=== PATIENT | female | born 1950 | race African-American/Black ===

== ENCOUNTER 2016-06-24 08:48 | Inpatient (IN) | payer OTHER, MEDICAID ==
[~2016-06-24] VITALS: Ht 157.5 cm; Wt 43.3 kg
[2016-06-24 09:41] LABS: Basophils # (auto) 0 uL; Basophils % (auto) 0.3 % (0.0-2.0); Eosinophils # (auto) 0.1 uL; Eosinophils % (auto) 0.6 % (0.0-7.0); Hematocrit 39.8 % (36.0-46.0); Hemoglobin 13.2 g/dL (12.2-16.2); Lymphocytes # (auto) 2.1 uL; Lymphocytes % (auto) 20.2 % (10.0-50.0); Mean Corpuscular Hemoglobin 32.5 pg (28.0-32.0); Mean Corpuscular Hgb Conc. 33.1 g/dL (32.0-36.0); Mean Corpuscular Volume 98.3 fL (80.0-100.0); Mean Platelet Volume 9.5 fL (7.4-10.4); Monocytes # (auto) 0.3 uL; Neutrophils # (auto) 7.9 uL; Neutrophils % (auto) 75.9 % (37.0-80.0); Platelet Count (auto) 238 10^3/uL (140-450); Red Cell Distribution Width 13.9 % (11.6-16.0); White Blood Cell 10.4 10^3/uL (4.4-10.8)
[2016-06-24 09:55] LABS: Albumin 3.8 g/dL (3.4-5.0); BUN/Creatinine Ratio 26.2; Calcium 8.9 mg/dL (8.5-10.1); Magnesium 2.2 mg/dL (1.6-2.6)
[2016-06-24 10:00] LABS: Bilirubin, Total 0.3 mg/dL (0.2-1.0); Total Protein 7.9 g/dL (6.4-8.2)
[2016-06-24] MEDS ORDERED: SODIUM CHLORIDE 0.9% 1,000 ML IV ONE ×2 (10:49→11:00)
[2016-06-24] MEDS ORDERED: FUROSEMIDE 40 MG/4 ML VIAL IV ONE (11:00)
[2016-06-24] MEDS ORDERED: ASPirin 81 mg TAB PO ONE (11:00)
[2016-06-24 11:15] LABS: INR 0.9 (0.9-1.15); Partial Thromboplastin Time 21.3 sec (22.64-33.71); Prothrombin Time 9.7 sec (9.37-12.3)
[2016-06-24 12:04] LABS: B-Type Natriuretic Peptide 938.27 pg/mL (0-100); Temperature: 22.7 C (20.0-25.0)
[2016-06-24] MEDS ORDERED: LABETALOL HCL 5 MG/ML 4ML SYRINGE IV ONE (12:30)
[2016-06-24] MEDS ORDERED: MORPHINE SULF INJ 2 MG/ML SYRINGE 1ML IV PRN (13:15)
[2016-06-24] MEDS ORDERED: NITROGLYCERIN 0.4 MG SL TAB SL PRN (13:15)
[2016-06-24] MEDS ORDERED: LACTULOSE 20Gm/30ML SOLN PO PRN (13:15)
[2016-06-24] MEDS ORDERED: DEXTROSE (50%) 50ML SYRG IV PRN (13:15)
[2016-06-24] MEDS ORDERED: PROCHLORPERAZINE EDISYLATE 5 MG/ML 2ML VIAL IV PRN (13:15)
[2016-06-24] MEDS ORDERED: LORazepam 0.5 MG TAB PO PRN (13:15)
[2016-06-24] MEDS ORDERED: ACETAMINOPHEN 500 MG TAB PO PRN (13:15)
[2016-06-24] MEDS ORDERED: SODIUM CHLORIDE 0.9% 1,000 ML IV SCH (13:33)
[2016-06-24] MEDS ORDERED: METF-312 PO (13:49)
[2016-06-24 14:06] LABS: Amylase 48 U/L (25-115)
[2016-06-24] MEDS: SODIUM CHLOR 0.9% PF (SALINE LOCK) 10ML VIAL IV SCH ×2 (14:53→23:14)
[2016-06-24] MEDS ORDERED: ENALAPRIL MALEATE 10 MG TAB PO ONE (15:00)
[2016-06-24] MEDS ORDERED: IBUP600T27 PO (15:49)
[2016-06-24] MEDS: NITROGLYCERIN 0.2MG/HR TOPICAL PATCH TD SCH (16:48)
[2016-06-24] MEDS: ENOXAPARIN SOD 40 MG/0.4 ML SYRINGE SC SCH (16:48)
[2016-06-24] MEDS: MORPHINE SULF INJ 2 MG/ML SYRINGE 1ML IV PRN (16:48)
[2016-06-24 16:58] VITALS: BP 168/96
[2016-06-24] MEDS: ACCU-CHEK COMFORT CURVE STRIP VI SCH ×2 (17:00→22:25)
[2016-06-24] MEDS: InsuLIN REG 1unit/0.01ml Soln (100units/ml) SC SCH ×2 (17:00→22:25)
[2016-06-24 17:09] LABS: Urine Bilirubin Negative (Negative); Urine Blood Negative /uL (Negative); Urine Color Colorless (Yellow); Urine Ketone Negative (Negative); Urine Nitrite Negative (Negative); Urine RBC <1 /hpf (0 - 4); Urine Squamous Epithelial Cell FEW /hpf (<5); Urine Urobilinogen Normal (Negative); Urine pH 5.5 (5.0-8.0)
[2016-06-24 18:05] LABS: Urine Glucose 3+ mg/dL (Normal)
[2016-06-24] MEDS: HYDROcodone-ACET 5/325MG TAB PO PRN (20:06)
[2016-06-24 21:06] VITALS: BP 133/80
[2016-06-24] MEDS: FAMOTIDINE 20 MG TAB PO SCH (23:14)
[2016-06-24] MEDS: CARVEDILOL 3.125 MG TAB PO SCH (23:14)
[2016-06-24] MEDS: ATORVASTATIN 20 MG TAB PO SCH (23:14)
[2016-06-25] VITALS (7 sets, daily range): BP systolic 114–149; BP diastolic 72–90
[2016-06-25 05:31] LABS: Basophils # (auto) 0 uL; Basophils % (auto) 0.3 % (0.0-2.0); Eosinophils # (auto) 0.1 uL; Hematocrit 35.6 % (36.0-46.0); Hemoglobin 11.7 g/dL (12.2-16.2); Lymphocytes # (auto) 2.2 uL; Lymphocytes % (auto) 25.3 % (10.0-50.0); Mean Corpuscular Hemoglobin 32.7 pg (28.0-32.0); Mean Corpuscular Hgb Conc. 32.8 g/dL (32.0-36.0); Mean Corpuscular Volume 99.5 fL (80.0-100.0); Mean Platelet Volume 9.2 fL (7.4-10.4); Monocytes # (auto) 0.7 uL; Monocytes % (auto) 8.2 % (0.0-12.0); Neutrophils # (auto) 5.6 uL; Neutrophils % (auto) 65.2 % (37.0-80.0); Platelet Count (auto) 244 10^3/uL (140-450); Red Cell Distribution Width 13.6 % (11.6-16.0); White Blood Cell 8.5 10^3/uL (4.4-10.8)
[2016-06-25 05:58] LABS: Albumin 3.1 g/dL (3.4-5.0); BUN/Creatinine Ratio 34.3; Bilirubin, Total 0.3 mg/dL (0.2-1.0); Potassium 3.7 mmol/L (3.5-5.1); Total Protein 6.7 g/dL (6.4-8.2)
[2016-06-25] MEDS: ACCU-CHEK COMFORT CURVE STRIP VI SCH ×4 (06:11→22:00)
[2016-06-25] MEDS: InsuLIN REG 1unit/0.01ml Soln (100units/ml) SC SCH ×4 (06:11→22:00)
[2016-06-25] MEDS: SODIUM CHLOR 0.9% PF (SALINE LOCK) 10ML VIAL IV SCH ×3 (06:11→22:31)
[2016-06-25 06:16] LABS: B-Type Natriuretic Peptide 722.01 pg/mL (0-100); Temperature: 21.6 C (20.0-25.0)
[2016-06-25] MEDS ORDERED: NITROGLYCERIN 0.2MG/HR TOPICAL PATCH TD SCH (10:00)
[2016-06-25] MEDS ORDERED: FUROSEMIDE 40 MG/4 ML VIAL IV SCH (10:00)
[2016-06-25] MEDS ORDERED: ASPirin 81 mg TAB PO SCH (10:00)
[2016-06-25] MEDS: POTASSIUM CHL 20 Meq TABLET PO SCH (10:59)
[2016-06-25] MEDS: ASPirin 81 mg TAB PO SCH (11:00)
[2016-06-25] MEDS: FAMOTIDINE 20 MG TAB PO SCH ×2 (11:00→22:30)
[2016-06-25] MEDS: CARVEDILOL 3.125 MG TAB PO SCH ×2 (11:01→22:31)
[2016-06-25] MEDS: ENOXAPARIN SOD 40 MG/0.4 ML SYRINGE SC SCH (11:02)
[2016-06-25] MEDS: NITROGLYCERIN 0.2MG/HR TOPICAL PATCH TD SCH (11:08)
[2016-06-25] MEDS: ENALAPRIL MALEATE 10 MG TAB PO SCH (11:09)
[2016-06-25] MEDS: HYDROcodone-ACET 5/325MG TAB PO PRN ×3 (11:23→22:31)
[2016-06-25] MEDS ORDERED: NICOTINE 21MG/24 HR TOPICAL PATCH TD ONE (12:00)
[2016-06-25] MEDS: MORPHINE SULF INJ 2 MG/ML SYRINGE 1ML IV PRN (20:29)
[2016-06-25] MEDS: ATORVASTATIN 20 MG TAB PO SCH (22:30)
[2016-06-26 05:25] VITALS: BP 149/92
[2016-06-26] MEDS: SODIUM CHLOR 0.9% PF (SALINE LOCK) 10ML VIAL IV SCH ×3 (06:00→21:52)
[2016-06-26 06:54] LABS: Potassium 4.1 mmol/L (3.5-5.1)
[2016-06-26 06:58] LABS: BUN/Creatinine Ratio 46.2
[2016-06-26] MEDS: ACCU-CHEK COMFORT CURVE STRIP VI SCH ×4 (07:04→21:19)
[2016-06-26] MEDS: InsuLIN REG 1unit/0.01ml Soln (100units/ml) SC SCH ×4 (07:05→21:19)
[2016-06-26] MEDS ORDERED: ADENOSINE 36 MG in GIVE UN-DILUTED 0 ML IV STA (07:56)
[2016-06-26 09:00] VITALS: BP 146/88
[2016-06-26] MEDS: NITROGLYCERIN 0.2MG/HR TOPICAL PATCH TD SCH (12:02)
[2016-06-26] MEDS: NICOTINE 21MG/24 HR TOPICAL PATCH TD SCH (12:03)
[2016-06-26] MEDS: ASPirin 81 mg TAB PO SCH (12:12)
[2016-06-26] MEDS: CARVEDILOL 3.125 MG TAB PO SCH ×2 (12:17→21:51)
[2016-06-26] MEDS: FUROSEMIDE 40 MG TAB PO SCH (12:18)
[2016-06-26] MEDS: FAMOTIDINE 20 MG TAB PO SCH ×2 (12:18→21:51)
[2016-06-26] MEDS: POTASSIUM CHL 20 Meq TABLET PO SCH (12:18)
[2016-06-26] MEDS: ENALAPRIL MALEATE 10 MG TAB PO SCH (12:19)
[2016-06-26] MEDS: HYDROcodone-ACET 5/325MG TAB PO PRN ×2 (12:36→21:51)
[2016-06-26 13:09] VITALS: BP 155/96
[2016-06-26] MEDS: MORPHINE SULF INJ 2 MG/ML SYRINGE 1ML IV PRN ×2 (14:27→15:19)
[2016-06-26 17:25] VITALS: BP 144/91
[2016-06-26 20:00] VITALS: BP 161/96
[2016-06-26 21:56] VITALS: BP 161/96
[2016-06-26] MEDS: ATORVASTATIN 20 MG TAB PO SCH (22:01)
[2016-06-27] VITALS (7 sets, daily range): BP systolic 127–154; BP diastolic 70–89
[2016-06-27] MEDS: SODIUM CHLOR 0.9% PF (SALINE LOCK) 10ML VIAL IV SCH ×3 (06:24→22:07)
[2016-06-27] MEDS: InsuLIN REG 1unit/0.01ml Soln (100units/ml) SC SCH ×4 (06:25→22:07)
[2016-06-27] MEDS: ACCU-CHEK COMFORT CURVE STRIP VI SCH ×4 (06:26→21:46)
[2016-06-27] MEDS: POTASSIUM CHL 20 Meq TABLET PO SCH (09:22)
[2016-06-27] MEDS: ASPirin 81 mg TAB PO SCH (09:23)
[2016-06-27] MEDS: FAMOTIDINE 20 MG TAB PO SCH ×2 (09:23→21:45)
[2016-06-27] MEDS: FUROSEMIDE 40 MG TAB PO SCH ×2 (09:23→17:35)
[2016-06-27] MEDS: CARVEDILOL 3.125 MG TAB PO SCH ×2 (09:24→21:44)
[2016-06-27] MEDS: ENALAPRIL MALEATE 10 MG TAB PO SCH (09:24)
[2016-06-27] MEDS: NITROGLYCERIN 0.2MG/HR TOPICAL PATCH TD SCH (09:28)
[2016-06-27] MEDS: NICOTINE 21MG/24 HR TOPICAL PATCH TD SCH (09:29)
[2016-06-27] MEDS: HYDROcodone-ACET 5/325MG TAB PO PRN (13:41)
[2016-06-27] MEDS: SPIRONOLACTONE 25 MG TAB PO SCH (17:34)
[2016-06-27] MEDS: MORPHINE SULF INJ 2 MG/ML SYRINGE 1ML IV PRN (20:21)
[2016-06-27] MEDS: TEMAZEPAM 15 MG CAP PO PRN (21:45)
[2016-06-27] MEDS: ATORVASTATIN 20 MG TAB PO SCH (21:45)
[2016-06-28] VITALS (8 sets, daily range): BP systolic 101–143; BP diastolic 66–90
[2016-06-28] MEDS: SODIUM CHLOR 0.9% PF (SALINE LOCK) 10ML VIAL IV SCH ×3 (05:09→22:23)
[2016-06-28] MEDS: FUROSEMIDE 40 MG TAB PO SCH ×2 (05:10→17:41)
[2016-06-28] MEDS: ACCU-CHEK COMFORT CURVE STRIP VI SCH ×4 (06:36→22:23)
[2016-06-28] MEDS: InsuLIN REG 1unit/0.01ml Soln (100units/ml) SC SCH ×4 (06:37→22:24)
[2016-06-28] MEDS: MORPHINE SULF INJ 2 MG/ML SYRINGE 1ML IV PRN (06:37)
[2016-06-28] MEDS: SPIRONOLACTONE 25 MG TAB PO SCH (09:49)
[2016-06-28] MEDS: ASPirin 81 mg TAB PO SCH (09:49)
[2016-06-28] MEDS: POTASSIUM CHL 20 Meq TABLET PO SCH (09:49)
[2016-06-28] MEDS: FAMOTIDINE 20 MG TAB PO SCH ×2 (09:49→21:25)
[2016-06-28] MEDS: CARVEDILOL 3.125 MG TAB PO SCH ×2 (09:50→21:23)
[2016-06-28] MEDS: ENALAPRIL MALEATE 10 MG TAB PO SCH (09:51)
[2016-06-28] MEDS: NITROGLYCERIN 0.2MG/HR TOPICAL PATCH TD SCH (09:52)
[2016-06-28] MEDS: NICOTINE 21MG/24 HR TOPICAL PATCH TD SCH (09:53)
[2016-06-28] MEDS: HYDROcodone-ACET 5/325MG TAB PO PRN ×2 (11:50→19:24)
[2016-06-28] MEDS: ATORVASTATIN 20 MG TAB PO SCH (21:24)
[2016-06-28] MEDS: TEMAZEPAM 15 MG CAP PO PRN (22:23)
[2016-06-29] VITALS (23 sets, daily range): BP systolic 107–158; BP diastolic 62–92
[2016-06-29] MEDS: SODIUM CHLOR 0.9% PF (SALINE LOCK) 10ML VIAL IV SCH ×3 (05:30→22:00)
[2016-06-29] MEDS: FUROSEMIDE 40 MG TAB PO SCH (05:55)
[2016-06-29] MEDS: ACCU-CHEK COMFORT CURVE STRIP VI SCH ×4 (06:06→22:00)
[2016-06-29] MEDS: InsuLIN REG 1unit/0.01ml Soln (100units/ml) SC SCH ×4 (06:09→22:00)
[2016-06-29] MEDS: SPIRONOLACTONE 25 MG TAB PO SCH (09:56)
[2016-06-29] MEDS: POTASSIUM CHL 20 Meq TABLET PO SCH (09:56)
[2016-06-29] MEDS: FAMOTIDINE 20 MG TAB PO SCH ×2 (09:57→22:15)
[2016-06-29] MEDS: ENALAPRIL MALEATE 10 MG TAB PO SCH (09:57)
[2016-06-29] MEDS: CARVEDILOL 3.125 MG TAB PO SCH ×2 (09:58→22:16)
[2016-06-29] MEDS: ASPirin 81 mg TAB PO SCH (09:58)
[2016-06-29] MEDS: NITROGLYCERIN 0.2MG/HR TOPICAL PATCH TD SCH (10:00)
[2016-06-29] MEDS ORDERED: LIDOCAINE 2%HCL (LOCAL ANESTH.) INJ 20ML MDV ONE (10:01)
[2016-06-29] MEDS ORDERED: IODIXANOL 320MG/ML 100ML BTL IV ONE (10:01)
[2016-06-29] MEDS: NICOTINE 21MG/24 HR TOPICAL PATCH TD SCH (10:02)
[2016-06-29] MEDS ORDERED: fentaNYL CITRATE 100 MCG/2 ML VL ONE (13:29)
[2016-06-29] MEDS ORDERED: MIDAZOLAM HCL 1MG/1ML-2 ML VIAL ONE (13:29)
[2016-06-29] MEDS ORDERED: VERAPAMIL 2.5MG/ML INJ 2ML VIAL IV ONE (13:30)
[2016-06-29] MEDS ORDERED: SODIUM CHL 0.9% 0 ML ONE (13:31)
[2016-06-29] MEDS ORDERED: ANGIOMAX 250 MG VIAL IV ONE (13:34)
[2016-06-29] MEDS ORDERED: HYDROcodone-ACET 5/325MG TAB PO PRN (15:00)
[2016-06-29] MEDS ORDERED: NITROGLYCERIN 0.4 MG SL TAB SL PRN (15:00)
[2016-06-29] MEDS ORDERED: SODIUM CHLORIDE 0.9% 1,000 ML IV SCH (15:00)
[2016-06-29] MEDS ORDERED: ACETAMINOPHEN 500 MG TAB PO PRN (15:00)
[2016-06-29] MEDS ORDERED: LORazepam 0.5 MG TAB PO PRN (15:00)
[2016-06-29] MEDS ORDERED: MORPHINE SULF INJ 2 MG/ML SYRINGE 1ML IV PRN (15:00)
[2016-06-29 16:31] LABS: Basophils # (auto) 0.1 uL; Basophils % (auto) 0.6 % (0.0-2.0); Eosinophils # (auto) 0.1 uL; Eosinophils % (auto) 1.2 % (0.0-7.0); Hematocrit 42.4 % (36.0-46.0); Hemoglobin 14.3 g/dL (12.2-16.2); Lymphocytes % (auto) 34.6 % (10.0-50.0); Mean Corpuscular Hgb Conc. 33.6 g/dL (32.0-36.0); Mean Corpuscular Volume 98.3 fL (80.0-100.0); Mean Platelet Volume 9.2 fL (7.4-10.4); Monocytes # (auto) 0.4 uL; Monocytes % (auto) 5.1 % (0.0-12.0); Neutrophils # (auto) 5.1 uL; Neutrophils % (auto) 58.5 % (37.0-80.0); Platelet Count (auto) 361 10^3/uL (140-450); Red Cell Distribution Width 13.6 % (11.6-16.0); White Blood Cell 8.8 10^3/uL (4.4-10.8)
[2016-06-29 16:47] LABS: Albumin 3.9 g/dL (3.4-5.0); Bilirubin, Total 0.4 mg/dL (0.2-1.0); Potassium 4.4 mmol/L (3.5-5.1); Total Protein 8.8 g/dL (6.4-8.2)
[2016-06-29] MEDS: MORPHINE SULF INJ 2 MG/ML SYRINGE 1ML IV PRN ×2 (17:00→21:02)
[2016-06-29] MEDS: MUPIROCIN 2% OINT 22GM TOP SCH (21:00)
[2016-06-29] MEDS: ATORVASTATIN 20 MG TAB PO SCH (22:15)
[2016-06-30] VITALS (74 sets, daily range): BP systolic 21–143; BP diastolic 8–92
[2016-06-30] MEDS ORDERED: CHLORHEXIDINE 4% TOPICAL soln 473ML TOP ONE (02:00)
[2016-06-30 04:05] LABS: BUN/Creatinine Ratio 48.6; Potassium 3.9 mmol/L (3.5-5.1)
[2016-06-30] MEDS ORDERED: ACCU-CHEK COMFORT CURVE STRIP VI ONE (06:00)
[2016-06-30] MEDS: SODIUM CHLOR 0.9% PF (SALINE LOCK) 10ML VIAL IV SCH (06:00)
[2016-06-30] MEDS ORDERED: CHLORHEXIDINE 0.12% ORAL rinse 473ML MT ONE (06:00)
[2016-06-30] MEDS: InsuLIN REG 1unit/0.01ml Soln (100units/ml) SC SCH ×2 (07:00→11:16)
[2016-06-30] MEDS ORDERED: VANCOMYCIN 1GM/250ML D5W 250 ML IV ONE (07:00)
[2016-06-30] MEDS: MUPIROCIN 2% OINT 22GM TOP SCH (07:00)
[2016-06-30] MEDS: ACCU-CHEK COMFORT CURVE STRIP VI SCH ×7 (07:00→23:00)
[2016-06-30] MEDS ORDERED: HEPARIN 30000 UNITS in SODIUM CHLORIDE 0.9% 1000 ML IV ONE (08:00)
[2016-06-30] MEDS ORDERED: PHENYLEPHRINE INJ 20 MG in SODIUM CHL 0.9% 250 ML IV ONE (08:00)
[2016-06-30] MEDS ORDERED: AMINOCAPROIC ACID 10 GM in SODIUM CHL 0.9% 100 ML IV ONE (08:00)
[2016-06-30] MEDS ORDERED: AMINOCAPROIC ACID 5 GM in SODIUM CHL 0.9% 250 ML IV ONE (08:00)
[2016-06-30] MEDS ORDERED: EPINEPHrine HCL 4 MG in D5W 5% 250 ML IM ONE (08:00)
[2016-06-30] MEDS ORDERED: InsuLIN R (HUMAN) 100 UNITS in SODIUM CHL 0.9% 99 ML IV ONE (08:00)
[2016-06-30] MEDS ORDERED: VASOPRESSIN 50 UNITS in SODIUM CHL 0.9% 247.5 ML IV ONE (08:00)
[2016-06-30 08:06] LABS: Basophils # (auto) 0 uL; Basophils % (auto) 0.5 % (0.0-2.0); Eosinophils # (auto) 0.1 uL; Eosinophils % (auto) 1.7 % (0.0-7.0); Hematocrit 35.9 % (36.0-46.0); Hemoglobin 11.9 g/dL (12.2-16.2); Lymphocytes % (auto) 36.4 % (10.0-50.0); Mean Corpuscular Hemoglobin 32.5 pg (28.0-32.0); Mean Corpuscular Hgb Conc. 33.1 g/dL (32.0-36.0); Mean Corpuscular Volume 98.2 fL (80.0-100.0); Mean Platelet Volume 8.8 fL (7.4-10.4); Monocytes # (auto) 0.7 uL; Neutrophils # (auto) 4.3 uL; Neutrophils % (auto) 52.4 % (37.0-80.0); Platelet Count (auto) 326 10^3/uL (140-450); Red Cell Distribution Width 13.3 % (11.6-16.0); White Blood Cell 8.2 10^3/uL (4.4-10.8)
[2016-06-30 08:20] LABS: INR 0.96 (0.9-1.15); Prothrombin Time 10.4 sec (9.37-12.3)
[2016-06-30] MEDS ORDERED: MANNITOL 20 % (20GM/100ML) SOLN 500ML IV ONE (09:00)
[2016-06-30] MEDS ORDERED: POTASSIUM CHL 2MEQ/ML 20ML IV ONE (09:00)
[2016-06-30] MEDS ORDERED: AMINOCAPROIC ACID 5 GM/20 ML VL IV ONE (09:00)
[2016-06-30] MEDS ORDERED: ADENOSINE 6 MG/2 ML INJ IV ONE (09:00)
[2016-06-30] MEDS ORDERED: CALCIUM CHLOR(10%) 100MG/ML 10ML SYRINGE IV ONE ×2 (09:00→10:57)
[2016-06-30] MEDS ORDERED: PHENYLEPHRINE HCL 10 MG/ML VL IV ONE (09:00)
[2016-06-30] MEDS ORDERED: DEXAMETHASONE SODIUM PHOSP 120 MG/30ml VIAL IV ONE (09:00)
[2016-06-30] MEDS ORDERED: ALBUMIN IV ONE (09:00)
[2016-06-30] MEDS ORDERED: SODIUM BICARBONATE 8.4 % INJ 50ML VIAL IV ONE ×2 (09:00→11:07)
[2016-06-30] MEDS ORDERED: LIDOCAINE HCL 100 MG/5ML (2%) SYRG INJ IV ONE (09:00)
[2016-06-30] MEDS ORDERED: MAGNESIUM SULF 50% 40 MEQ/10 ML VL IV ONE (09:00)
[2016-06-30] MEDS: MORPHINE SULF INJ 2 MG/ML SYRINGE 1ML IV PRN (09:29)
[2016-06-30] MEDS: POTASSIUM CHL 20 Meq TABLET PO SCH (09:34)
[2016-06-30] MEDS: FAMOTIDINE 20 MG TAB PO SCH (09:34)
[2016-06-30] MEDS: NITROGLYCERIN 0.2MG/HR TOPICAL PATCH TD SCH (09:35)
[2016-06-30] MEDS: SPIRONOLACTONE 25 MG TAB PO SCH (09:35)
[2016-06-30] MEDS: ASPirin 81 mg TAB PO SCH (09:35)
[2016-06-30] MEDS: ENALAPRIL MALEATE 10 MG TAB PO SCH (09:44)
[2016-06-30] MEDS: CARVEDILOL 3.125 MG TAB PO SCH (09:45)
[2016-06-30] MEDS ORDERED: FUROSEMIDE 40 MG TAB PO SCH (10:00)
[2016-06-30] MEDS: NICOTINE 21MG/24 HR TOPICAL PATCH TD SCH (10:00)
[2016-06-30] MEDS ORDERED: PAPAVERINE HCL 60 MG/2 ML 2ML VIAL ONE (10:04)
[2016-06-30] MEDS ORDERED: HEPARIN 1,000 UNITS/ml 1ML VIAL ONE (10:04)
[2016-06-30] MEDS ORDERED: NEOMYCIN-BACITRACIN-POLYM 15GM TOP OINT TOP ONE (10:04)
[2016-06-30] MEDS ORDERED: ceFAZolin 1GM/50ML D5W 50 ML IV ONE (10:33)
[2016-06-30] MEDS ORDERED: DESMOPRESSIN ACET 4 MCG/1 ML AMPULE ONE (10:41)
[2016-06-30] MEDS ORDERED: SUCCINYLCHOLINE CHLORIDE 20 MG/ML 10ML VIAL IV ONE (10:41)
[2016-06-30] MEDS ORDERED: ePHEDrine SULFATE 50 MG/ML AMP ONE (10:53)
[2016-06-30] MEDS ORDERED: NITROGLYCERIN 50 MG/250 ML IV ONE (10:57)
[2016-06-30] MEDS ORDERED: MIDAZOLAM HCL 1MG/1ML-2 ML VIAL ONE ×2 (11:06→13:11)
[2016-06-30] MEDS ORDERED: LIDOCAINE 2%HCL (LOCAL ANESTH.) INJ 20ML MDV ONE (11:07)
[2016-06-30] MEDS ORDERED: HYDROmorphone HCL 2 MG/ML VL ONE (11:07)
[2016-06-30] MEDS ORDERED: ETOMIDATE (2MG/ML) 20ML VIAL IV ONE (11:07)
[2016-06-30] MEDS ORDERED: ROCURONIUM 10MG/ML 10ML VIAL IV ONE (11:07)
[2016-06-30] MEDS ORDERED: CLINDAMYCIN 600MG IV 50 ML IV ONE (11:12)
[2016-06-30] MEDS ORDERED: ALBUMIN 25% 200 ML IV ONE (11:44)
[2016-06-30] MEDS ORDERED: PLASMA-LYTE A pH7.4 6,000 ML INJ ONE (12:01)
[2016-06-30] MEDS ORDERED: PROTAMINE SULFATE 250 MG/25 ML VL IV ONE (13:09)
[2016-06-30] MEDS ORDERED: MILRINONE 20 ML ONE (13:12)
[2016-06-30] MEDS ORDERED: AMIODARONE HCL (50 MG/ ML) 3 ML VIAL IV ONE (13:12)
[2016-06-30] MEDS ORDERED: MILRINONE 20MG/100ML 100 ML IV ONE (13:19)
[2016-06-30] MEDS ORDERED: NOREPINEPHRINE BITARTRATE 250 ML IV ONE (13:19)
[2016-06-30] MEDS ORDERED: PROTAMINE SULFATE 10 MG/ML 5ML VIAL IV ONE ×2 (16:35→16:54)
[2016-06-30 17:55] LABS: Base Excess 0.5 mmol/L (-2.0-2.0); Blood 02Sat 94.2 % (96-100); Blood AaDO2 384.5 mmHg (<26.0); Blood MetHb 0.3 % (0.0-1.5); HCO3 24.9 mmol/L (22-26.0); MODE ROOM AIR; O2Hb 93.9 % (95.0-100.0); PCO2 39.5 mmHg (35.0-45.0); PO2 72.1 mmHg (65.0-85.0); Sample Type Arterial; pH 7.418 (7.350-7.450)
[2016-06-30 17:56] LABS: Base Excess -1.9 mmol/L (-2.0-2.0); Blood 02Sat 98.4 % (96-100); Blood COHb 0.3 % (<2.0); Blood MetHb 0.9 % (0.0-1.5); HCO3 23.3 mmol/L (22-26.0); MODE VENT - A/C; O2Hb 97.2 % (95.0-100.0); PCO2 41.5 mmHg (35.0-45.0); PO2 295.5 mmHg (65.0-85.0); Sample Type Arterial; pH 7.367 (7.350-7.450)
[2016-06-30 17:56] LABS: Base Excess -7.1 mmol/L (-2.0-2.0); Blood 02Sat 99.1 % (96-100); Blood AaDO2 339.1 mmHg (<26.0); Blood COHb 0.3 % (<2.0); Blood MetHb 0.1 % (0.0-1.5); HCO3 21.3 mmol/L (22-26.0); MODE VENT - A/C; O2Hb 98.7 % (95.0-100.0); PCO2 57.4 mmHg (35.0-45.0); PO2 316.5 mmHg (65.0-85.0); Sample Type Arterial; pH 7.188 (7.350-7.450)
[2016-06-30] MEDS ORDERED: PROPOFOL 100 ML IV ONE ×2 (17:56→18:55)
[2016-06-30 17:57] LABS: Base Excess -5.5 mmol/L (-2.0-2.0); Blood 02Sat 98.6 % (96-100); Blood AaDO2 132.9 mmHg (<26.0); Blood COHb 0.3 % (<2.0); Blood MetHb 0.5 % (0.0-1.5); HCO3 21.4 mmol/L (22-26.0); MODE OXYGENATOR/CPB; O2Hb 97.8 % (95.0-100.0); PO2 321.3 mmHg (65.0-85.0); Sample Type Arterial; pH 7.286 (7.350-7.450)
[2016-06-30 17:57] LABS: Base Excess -3.6 mmol/L (-2.0-2.0); Blood 02Sat 98.3 % (96-100); Blood AaDO2 362.4 mmHg (<26.0); Blood COHb 0.3 % (<2.0); HCO3 21.1 mmol/L (22-26.0); MODE VENT - A/C; PCO2 36.1 mmHg (35.0-45.0); PO2 314.5 mmHg (65.0-85.0); Sample Type Arterial; pH 7.384 (7.350-7.450)
[2016-06-30 17:58] LABS: Base Excess 0.6 mmol/L (-2.0-2.0); Blood 02Sat 98.5 % (96-100); Blood AaDO2 79.3 mmHg (<26.0); Blood COHb 0.2 % (<2.0); Blood MetHb 0.7 % (0.0-1.5); HCO3 26.2 mmol/L (22-26.0); MODE OXYGENATOR/CPB; O2Hb 97.6 % (95.0-100.0); PO2 344.3 mmHg (65.0-85.0); Sample Type Arterial; pH 7.409 (7.350-7.450)
[2016-06-30 17:58] LABS: Blood 02Sat 80.8 % (96-100); MODE OXYGENATOR/CPB; Sample Type Venous; Venous Blood COHb 0.3 % (0.5-1.5); Venous Blood Gas pH 7.243 (7.34-7.37); Venous Blood MetHb 0.7 % (0.0-1.5); Venous Blood PO2 48.1 mmHg (38.0-42.0)
[2016-06-30 17:59] LABS: Base Excess -1.2 mmol/L (-2.0-2.0); Blood 02Sat 98.3 % (96-100); Blood AaDO2 88.8 mmHg (<26.0); Blood COHb 0.3 % (<2.0); Blood MetHb 0.8 % (0.0-1.5); HCO3 22.7 mmol/L (22-26.0); MODE OXYGENATOR/CPB; O2Hb 97.2 % (95.0-100.0); PO2 276.3 mmHg (65.0-85.0); Sample Type Arterial; pH 7.496 (7.350-7.450)
[2016-06-30 18:00] LABS: Base Excess -0.1 mmol/L (-2.0-2.0); Blood 02Sat 98.3 % (96-100); Blood AaDO2 179.6 mmHg (<26.0); Blood COHb 0.3 % (<2.0); HCO3 24.1 mmol/L (22-26.0); MODE OXYGENATOR/CPB; PCO2 34.1 mmHg (35.0-45.0); PO2 286.4 mmHg (65.0-85.0); Sample Type Arterial
[2016-06-30 18:27] LABS: Base Excess -4.5 mmol/L (-2.0-2.0); Blood 02Sat 95.9 % (96-100); Blood AaDO2 284.1 mmHg (<26.0); Blood COHb 0.1 % (<2.0); Blood MetHb 0.3 % (0.0-1.5); MODE VENT - A/C; O2Hb 95.5 % (95.0-100.0); PCO2 40.3 mmHg (35.0-45.0); PO2 99.4 mmHg (65.0-85.0); Sample Type Arterial; pH 7.334 (7.350-7.450)
[2016-06-30] MEDS: SODIUM CHLORIDE 0.9% 500 ML IV SCH (18:40)
[2016-06-30] MEDS ORDERED: PROPOFOL 100 ML IV SCH (18:40)
[2016-06-30] MEDS ORDERED: NITROGLYCERIN 50MG/250ML 250 ML IV SCH (18:40)
[2016-06-30] MEDS: NICARDIPINE 25MG/250ML BAG KIT 250 ML IV SCH ×2 (18:40→23:40)
[2016-06-30] MEDS: MILRINONE 20MG/100ML 100 ML IV SCH (18:40)
[2016-06-30] MEDS: NOREPINEPHRINE BITARTRATE 250 ML IV SCH (18:40)
[2016-06-30] MEDS: PHENYLEPHRINE IV 250 ML IV SCH (18:40)
[2016-06-30] MEDS ORDERED: MAGNESIUM SULFATE 1GM/100ML 100 ML IV PRN (18:45)
[2016-06-30] MEDS ORDERED: IPRATROPIUM BROM 0.5 MG/2.5ML INH SOL NEB PRN (18:45)
[2016-06-30] MEDS ORDERED: MORPHINE SULFATE 4 MG/ML SYRG IV PRN ×2 (18:45)
[2016-06-30] MEDS ORDERED: SODIUM BICARBONATE 8.4% INJ 50ML SYRINGE IV PRN (18:45)
[2016-06-30] MEDS ORDERED: AMIODARONE HCL 150 MG in D5W 5% 100 ML IV ONE (18:45)
[2016-06-30] MEDS ORDERED: METOCLOPRAMIDE HCL 5MG/ml INJ 2ml VIAL IV PRN (18:45)
[2016-06-30] MEDS: VANCOMYCIN 1GM/250ML D5W 250 ML IV SCH (18:45)
[2016-06-30] MEDS ORDERED: NITROGLYCERIN 0.4 MG SL TAB SL PRN (18:45)
[2016-06-30] MEDS ORDERED: POTASSIUM CHL 20MEQ/100ML 100 ML IV PRN (18:45)
[2016-06-30] MEDS ORDERED: ONDANSETRON HCL 4 MG/2 ML VIAL IV PRN (18:45)
[2016-06-30] MEDS ORDERED: AMIODARONE HCL 900 MG in DEXTROSE 500 ML IV SCH (18:50)
[2016-06-30] MEDS ORDERED: ALBUMIN 5% 750 ML IV ONE (18:55)
[2016-06-30] MEDS ORDERED: INSULIN DRIP 100 UNIT/100ML 100 ML IV SCH (18:55)
[2016-06-30] MEDS ORDERED: DEXTROSE (50%) 50ML SYRG IV PRN (19:00)
[2016-06-30 19:08] LABS: Hematocrit 28.8 % (36.0-46.0); Hemoglobin 10.3 g/dL (12.2-16.2); Mean Corpuscular Hemoglobin 34.4 pg (28.0-32.0); Mean Corpuscular Hgb Conc. 35.6 g/dL (32.0-36.0); Mean Corpuscular Volume 96.5 fL (80.0-100.0); Mean Platelet Volume 9.3 fL (7.4-10.4); Platelet Count (auto) 177 10^3/uL (140-450); Red Cell Distribution Width 14.6 % (11.6-16.0); SUSPECT VIEW TRANSMISSION; White Blood Cell 23.1 10^3/uL (4.4-10.8)
[2016-06-30 19:11] LABS: Metamyelocytes % 0; Myelocytes % 0; Promyelocytes % 0; Reactive Lymphocytes 0
[2016-06-30 19:15] LABS: Albumin 3.3 g/dL (3.4-5.0); BUN/Creatinine Ratio 32.2; Bilirubin, Total 0.8 mg/dL (0.2-1.0); Calcium 9.6 mg/dL (8.5-10.1); Phosphorus 2.6 mg/dL (2.5-4.90); Potassium 4.7 mmol/L (3.5-5.1); Total Protein 5.7 g/dL (6.4-8.2)
[2016-06-30 19:19] LABS: INR 1.13 (0.9-1.15); Partial Thromboplastin Time 25.9 sec (22.64-33.71); Prothrombin Time 12.2 sec (9.37-12.3)
[2016-06-30 19:20] LABS: Magnesium 4.3 mg/dL (1.6-2.6)
[2016-06-30 19:35] LABS: Platelet Estimate Adequate
[2016-06-30] MEDS: ALBUMIN 5% 250 ML IV PRN (19:54)
[2016-06-30] MEDS: SODIUM CHLORIDE 0.9% 1,000 ML IV SCH (21:00)
[2016-06-30] MEDS: CHLORHEXIDINE 0.12% ORAL rinse 473ML MT SCH (22:00)
[2016-06-30 22:29] LABS: DEFINITIVE VIEW TRANSMISSION; Hematocrit 27.4 % (36.0-46.0); Hemoglobin 9.2 g/dL (12.2-16.2); Mean Corpuscular Hemoglobin 32.7 pg (28.0-32.0); Mean Corpuscular Hgb Conc. 33.6 g/dL (32.0-36.0); Mean Corpuscular Volume 97.2 fL (80.0-100.0); Mean Platelet Volume 8.4 fL (7.4-10.4); Platelet Count (auto) 169 10^3/uL (140-450); Red Cell Distribution Width 14.8 % (11.6-16.0); SUSPECT VIEW TRANSMISSION; White Blood Cell 22.5 10^3/uL (4.4-10.8)
[2016-06-30 22:33] LABS: Metamyelocytes % 0; Myelocytes % 0; Promyelocytes % 0; Reactive Lymphocytes 0
[2016-06-30 23:05] LABS: BUN/Creatinine Ratio 26.5; Calcium 9.1 mg/dL (8.5-10.1); Potassium 4.5 mmol/L (3.5-5.1)
[2016-06-30 23:16] LABS: Phosphorus 2.8 mg/dL (2.5-4.90)
[2016-06-30 23:31] LABS: Magnesium 3.9 mg/dL (1.6-2.6)
[2016-07-01] VITALS (97 sets, daily range): BP systolic -19–162; BP diastolic -19–82
[2016-07-01] MEDS: VANCOMYCIN 1GM/250ML D5W 250 ML IV SCH
[2016-07-01] MEDS: PHENYLEPHRINE IV 250 ML IV SCH ×2 (00:15→07:41)
[2016-07-01 00:16] LABS: Anisocytosis Slight; Hypersegmented Neutrophils Present; Platelet Estimate Adequate
[2016-07-01] MEDS ORDERED: CLINDAMYCIN 600MG IV 50 ML IV ONE (00:45)
[2016-07-01] MEDS: AMIODARONE HCL 900 MG in DEXTROSE 500 ML IV SCH (00:50)
[2016-07-01] MEDS: ACCU-CHEK COMFORT CURVE STRIP VI SCH ×18 (01:00→19:58)
[2016-07-01] MEDS: ALBUMIN 5% 250 ML IV PRN (02:05)
[2016-07-01] MEDS: MORPHINE SULF INJ 2 MG/ML SYRINGE 1ML IV PRN ×3 (02:34→16:51)
[2016-07-01 04:17] LABS: Blood 02Sat 94.8 % (96-100); Blood COHb 0.7 % (<2.0); Blood MetHb 0.4 % (0.0-1.5); HCO3 20.5 mmol/L (22-26.0); MODE VENT - A/C; O2Hb 93.8 % (95.0-100.0); PCO2 39.9 mmHg (35.0-45.0); PO2 95.2 mmHg (65.0-85.0); Sample Type Arterial; pH 7.329 (7.350-7.450)
[2016-07-01 04:25] LABS: DEFINITIVE VIEW TRANSMISSION; Hemoglobin 7.3 g/dL (12.2-16.2); Mean Corpuscular Hemoglobin 32.7 pg (28.0-32.0); Mean Corpuscular Hgb Conc. 33.3 g/dL (32.0-36.0); Mean Corpuscular Volume 98.1 fL (80.0-100.0); Mean Platelet Volume 8.6 fL (7.4-10.4); Platelet Count (auto) 150 10^3/uL (140-450); Red Cell Distribution Width 14.6 % (11.6-16.0); SUSPECT VIEW TRANSMISSION; White Blood Cell 21.9 10^3/uL (4.4-10.8)
[2016-07-01] MEDS: SODIUM CHLORIDE 0.9% 1,000 ML IV SCH (04:40)
[2016-07-01] MEDS: NICARDIPINE 25MG/250ML BAG KIT 250 ML IV SCH ×4 (04:40→19:40)
[2016-07-01 04:45] LABS: Metamyelocytes % 0; Myelocytes % 0; Promyelocytes % 0; Reactive Lymphocytes 0
[2016-07-01 04:57] LABS: BUN/Creatinine Ratio 27.5; Calcium 8.6 mg/dL (8.5-10.1); Potassium 4.3 mmol/L (3.5-5.1)
[2016-07-01 04:59] LABS: Magnesium 3.6 mg/dL (1.6-2.6); Phosphorus 2.9 mg/dL (2.5-4.90)
[2016-07-01 05:03] LABS: Anisocytosis Slight; Platelet Estimate Adequate
[2016-07-01] MEDS: MILRINONE 20MG/100ML 100 ML IV SCH (08:00)
[2016-07-01] MEDS: PANTOPRAZOLE SODIUM 40 MG/10 ML VIAL IV SCH (09:36)
[2016-07-01] MEDS: CHLORHEXIDINE 0.12% ORAL rinse 473ML MT SCH ×2 (10:17→22:00)
[2016-07-01] MEDS: DOPamine 1600MCG/ML 250 ML IV SCH (10:30)
[2016-07-01] MEDS ORDERED: SOD CHL 0.45% 1,000 ML IV ONE ×2 (11:30)
[2016-07-01] MEDS ORDERED: VANCOMYCIN 1GM/250ML D5W 250 ML IV SCH (12:00)
[2016-07-01 12:18] LABS: DEFINITIVE VIEW TRANSMISSION; Hematocrit 18.1 % (36.0-46.0); Mean Corpuscular Volume 93.9 fL (80.0-100.0); Mean Platelet Volume 8.4 fL (7.4-10.4); Platelet Count (auto) 76 10^3/uL (140-450); Red Cell Distribution Width 16.9 % (11.6-16.0); SUSPECT VIEW TRANSMISSION; White Blood Cell 17.9 10^3/uL (4.4-10.8)
[2016-07-01 12:32] LABS: Metamyelocytes % 0; Myelocytes % 0; Promyelocytes % 0; Reactive Lymphocytes 0
[2016-07-01 12:41] LABS: Allen Test No; Base Excess -7.8 mmol/L (-2.0-2.0); Blood AaDO2 131.6 mmHg (<26.0); Blood COHb 0.2 % (0.5-1.5); Blood MetHb 0.3 % (0.0-1.5); HCO3 18.3 mmol/L (22-26.0); MODE VENT - CPAP; O2Hb 91.5 % (95.0-100.0); PCO2 39.3 mmHg (35.0-45.0); PIP 13; PO2 72.3 mmHg (65.0-85.0); Pressure Support 8; Sample Type Arterial; Spont Vt 241; pH 7.286 (7.350-7.450)
[2016-07-01] MEDS ORDERED: SODIUM BICARBONATE 8.4% INJ 50ML SYRINGE ONE (12:44)
[2016-07-01] MEDS ORDERED: SODIUM BICARBONATE 8.4 % INJ 50ML VIAL IV ONE (12:45)
[2016-07-01 12:46] LABS: BUN/Creatinine Ratio 25.4; Calcium 8.4 mg/dL (8.5-10.1); Potassium 4.9 mmol/L (3.5-5.1)
[2016-07-01 13:04] LABS: Magnesium 3.5 mg/dL (1.6-2.6); Phosphorus 4.5 mg/dL (2.5-4.90)
[2016-07-01] MEDS ORDERED: CALCIUM GLUC 4.65 MEQ/10ML 4.65 MEQ in SODIUM CHL 0.9% 50 ML IV ONE (13:45)
[2016-07-01 14:04] LABS: DEFINITIVE VIEW TRANSMISSION; Mean Platelet Volume 9.9 fL (7.4-10.4); SUSPECT VIEW TRANSMISSION
[2016-07-01 14:08] LABS: Hematocrit 29.9 % (36.0-46.0); Hemoglobin 10.2 g/dL (12.2-16.2); Mean Corpuscular Hemoglobin 31.7 pg (28.0-32.0); Mean Corpuscular Hgb Conc. 34.2 g/dL (32.0-36.0); Mean Corpuscular Volume 92.5 fL (80.0-100.0); Platelet Count (auto) 132 10^3/uL (140-450); Red Cell Distribution Width 17.3 % (11.6-16.0)
[2016-07-01 14:33] LABS: White Blood Cell 30.5 10^3/uL (4.4-10.8)
[2016-07-01 14:34] LABS: Metamyelocytes % 0; Myelocytes % 0; Promyelocytes % 0; Reactive Lymphocytes 0
[2016-07-01] MEDS ORDERED: NICOTINE 21MG/24 HR TOPICAL PATCH TD ONE (14:45)
[2016-07-01] MEDS ORDERED: VANCOMYCIN PER PHARMACY 0 MG IV SCH (14:45)
[2016-07-01 14:53] LABS: Burr Cells FEW; Platelet Estimate Decreased
[2016-07-01 14:55] LABS: Anisocytosis Slight
[2016-07-01] MEDS ORDERED: VANCOMYCIN 750 MG in D5W 5% 250 ML IV ONE (15:00)
[2016-07-01 15:06] LABS: Anisocytosis Slight; Burr Cells FEW; Platelet Estimate Decreased
[2016-07-01] MEDS ORDERED: NITROGLYCERIN 0.4MG/HR TOPICAL PATCH TD ONE ×2 (15:24→15:30)
[2016-07-01] MEDS ORDERED: ASPirin 81 mg TAB PO ONE (15:30)
[2016-07-01] MEDS: InsuLIN REG 1unit/0.01ml Soln (100units/ml) SC SCH ×2 (16:00→21:00)
[2016-07-01] MEDS: SODIUM CHLORIDE 0.9% 500 ML IV SCH (18:40)
[2016-07-01] MEDS: NOREPINEPHRINE BITARTRATE 250 ML IV SCH (18:40)
[2016-07-01] MEDS: IPRATROPIUM BROM 0.5 MG/2.5ML INH SOL NEB SCH (19:37)
[2016-07-01] MEDS: ALBUTEROL SULF 2.5 MG/0.5ML(0.5%) NEB SOLN NEB SCH (19:37)
[2016-07-01] MEDS ORDERED: MORPHINE SULF INJ 2 MG/ML SYRINGE 1ML ONE (19:58)
[2016-07-01] MEDS ORDERED: MORPHINE SULF INJ 2 MG/ML SYRINGE 1ML IV PRN (20:00)
[2016-07-01] MEDS: HYDROcodone-ACET 5/325MG TAB PO PRN (22:27)
[2016-07-01 23:57] LABS: Base Excess -3.6 mmol/L (-2.0-2.0); Blood 02Sat 92.4 % (96-100); Blood AaDO2 131.8 mmHg (<26.0); Blood COHb 0.5 % (0.5-1.5); Blood MetHb 0.4 % (0.0-1.5); HCO3 22.5 mmol/L (22-26.0); MODE NASAL CANNULA; O2Hb 91.6 % (95.0-100.0); PCO2 44.9 mmHg (35.0-45.0); PO2 73.2 mmHg (65.0-85.0); Sample Type Arterial; pH 7.316 (7.350-7.450)
[2016-07-02] VITALS (101 sets, daily range): BP systolic 25–162; BP diastolic 9–99
[2016-07-02] MEDS: ACCU-CHEK COMFORT CURVE STRIP VI SCH ×6 (00:06→20:40)
[2016-07-02] MEDS: InsuLIN REG 1unit/0.01ml Soln (100units/ml) SC SCH ×6 (00:07→20:50)
[2016-07-02] MEDS: MORPHINE SULF INJ 2 MG/ML SYRINGE 1ML IV PRN (00:16)
[2016-07-02] MEDS: ALBUTEROL SULF 2.5 MG/0.5ML(0.5%) NEB SOLN NEB SCH ×3 (01:43→10:20)
[2016-07-02] MEDS: IPRATROPIUM BROM 0.5 MG/2.5ML INH SOL NEB SCH ×6 (01:43→22:06)
[2016-07-02] MEDS: HYDROcodone-ACET 5/325MG TAB PO PRN ×3 (03:37→17:28)
[2016-07-02 04:27] LABS: Base Excess -2.5 mmol/L (-2.0-2.0); Blood AaDO2 115.4 mmHg (<26.0); Blood COHb 0.5 % (0.5-1.5); Blood MetHb 0.5 % (0.0-1.5); HCO3 24.2 mmol/L (22-26.0); MODE NASAL CANNULA; O2Hb 93.1 % (95.0-100.0); PCO2 50.5 mmHg (35.0-45.0); Sample Type Arterial; pH 7.296 (7.350-7.450)
[2016-07-02 04:40] LABS: DEFINITIVE VIEW TRANSMISSION; Hemoglobin 7.9 g/dL (12.2-16.2); Mean Corpuscular Hemoglobin 30.8 pg (28.0-32.0); Mean Corpuscular Hgb Conc. 33.2 g/dL (32.0-36.0); Mean Corpuscular Volume 92.9 fL (80.0-100.0); Mean Platelet Volume 9.4 fL (7.4-10.4); Platelet Count (auto) 112 10^3/uL (140-450); Red Cell Distribution Width 17.6 % (11.6-16.0); SUSPECT VIEW TRANSMISSION; White Blood Cell 27.8 10^3/uL (4.4-10.8)
[2016-07-02 04:50] LABS: Metamyelocytes % 0; Myelocytes % 0; Promyelocytes % 0; Reactive Lymphocytes 0
[2016-07-02 05:04] LABS: Albumin 3.3 g/dL (3.4-5.0); BUN/Creatinine Ratio 29.1; Calcium 8.4 mg/dL (8.5-10.1); Potassium 4.4 mmol/L (3.5-5.1)
[2016-07-02 05:07] LABS: Bilirubin, Total 0.6 mg/dL (0.2-1.0); Total Protein 5.6 g/dL (6.4-8.2)
[2016-07-02 05:12] LABS: Hypersegmented Neutrophils Present
[2016-07-02 05:13] LABS: Anisocytosis Slight; Ovalocytes FEW
[2016-07-02] MEDS ORDERED: FUROSEMIDE 20 MG/2 ML VIAL ONE (06:11)
[2016-07-02] MEDS ORDERED: FUROSEMIDE 20 MG/2 ML VIAL IV ONE (06:30)
[2016-07-02] MEDS ORDERED: fentaNYL CITRATE 100 MCG/2 ML VL IV PRN (06:45)
[2016-07-02] MEDS: AMIODARONE HCL 900 MG in DEXTROSE 500 ML IV SCH (07:53)
[2016-07-02] MEDS: NICARDIPINE 25MG/250ML BAG KIT 250 ML IV SCH ×3 (07:54→10:40)
[2016-07-02] MEDS: NICOTINE 21MG/24 HR TOPICAL PATCH TD SCH (09:35)
[2016-07-02] MEDS: MILRINONE 20MG/100ML 100 ML IV SCH (09:56)
[2016-07-02] MEDS ORDERED: NITROGLYCERIN 0.4MG/HR TOPICAL PATCH TD SCH (10:00)
[2016-07-02] MEDS ORDERED: ASPirin 81 mg TAB PO SCH (10:00)
[2016-07-02] MEDS: PANTOPRAZOLE SODIUM 40 MG/10 ML VIAL IV SCH ×2 (10:04→21:55)
[2016-07-02] MEDS: CHLORHEXIDINE 0.12% ORAL rinse 473ML MT SCH ×2 (10:06→22:00)
[2016-07-02] MEDS ORDERED: SODIUM BICARBONATE 8.4% INJ 50ML SYRINGE ONE (10:19)
[2016-07-02] MEDS ORDERED: SODIUM BICARBONATE 8.4 % INJ 50ML VIAL IV ONE (10:30)
[2016-07-02] MEDS ORDERED: LIDOCAINE 2%HCL (LOCAL ANESTH.) INJ 20ML MDV ONE (10:37)
[2016-07-02] MEDS ORDERED: fentaNYL CITRATE 100 MCG/2 ML VL ONE (10:50)
[2016-07-02 10:51] LABS: Base Excess -1.9 mmol/L (-2.0-2.0); Blood 02Sat 98.4 % (96-100); Blood COHb 0.3 % (0.5-1.5); Blood MetHb 0.9 % (0.0-1.5); HCO3 23.3 mmol/L (22-26.0); MODE VENT - A/C; O2Hb 97.2 % (95.0-100.0); PCO2 41.5 mmHg (35.0-45.0); PO2 295.5 mmHg (65.0-85.0); Sample Type Arterial; pH 7.367 (7.350-7.450)
[2016-07-02] MEDS ORDERED: CALCIUM GLUC 4.65 MEQ/10ML 4.65 MEQ in SODIUM CHL 0.9% 50 ML IV ONE (11:30)
[2016-07-02] MEDS ORDERED: SENNA 8.6 MG TAB PO PRN (11:45)
[2016-07-02] MEDS: DOPamine 1600MCG/ML 250 ML IV SCH (12:25)
[2016-07-02] MEDS ORDERED: DOPamine 1600MCG/ML 250 ML IV ONE (13:29)
[2016-07-02] MEDS: ACETYLCYSTEINE 10 %(100MG/ML) SOL 4ML NEB SCH ×2 (14:00→22:06)
[2016-07-02 14:24] LABS: Allen Test Yes; Base Excess -3.1 mmol/L (-2.0-2.0); Blood 02Sat 95.4 % (96-100); Blood AaDO2 90.8 mmHg (<26.0); Blood COHb 0.6 % (0.5-1.5); Blood MetHb 0.2 % (0.0-1.5); HCO3 22.4 mmol/L (22-26.0); MODE NASAL CANNULA; O2Hb 94.6 % (95.0-100.0); PCO2 41.8 mmHg (35.0-45.0); PO2 88.5 mmHg (65.0-85.0); Sample Type Arterial; pH 7.347 (7.350-7.450)
[2016-07-02 14:27] LABS: Hypochromia Slight; Microcytosis Slight; Platelet Estimate Decreased
[2016-07-02] MEDS: fentaNYL CITRATE 100 MCG/2 ML VL IV PRN ×2 (14:40→20:38)
[2016-07-02] MEDS: SODIUM CHLORIDE 0.9% 500 ML IV SCH (14:40)
[2016-07-02] MEDS ORDERED: ALPRAZolam 0.5 MG TAB PO PRN (15:15)
[2016-07-02 16:32] LABS: INR 0.9 (0.9-1.15); Prothrombin Time 9.7 sec (9.37-12.3)
[2016-07-02 17:14] LABS: DEFINITIVE VIEW TRANSMISSION; Hematocrit 31.5 % (36.0-46.0); Hemoglobin 10.6 g/dL (12.2-16.2); Mean Corpuscular Hemoglobin 30.3 pg (28.0-32.0); Mean Corpuscular Hgb Conc. 33.6 g/dL (32.0-36.0); Mean Corpuscular Volume 90.1 fL (80.0-100.0); Mean Platelet Volume 9.8 fL (7.4-10.4); Platelet Count (auto) 99 10^3/uL (140-450); Red Cell Distribution Width 17.7 % (11.6-16.0); SUSPECT VIEW TRANSMISSION; White Blood Cell 21.6 10^3/uL (4.4-10.8)
[2016-07-02] MEDS: FUROSEMIDE 40 MG TAB PO SCH (17:28)
[2016-07-02 17:34] LABS: Metamyelocytes % 0; Myelocytes % 0; Promyelocytes % 0; Reactive Lymphocytes 0
[2016-07-02 17:47] LABS: Burr Cells FEW; Ovalocytes FEW; Platelet Estimate Decreased
[2016-07-02] MEDS ORDERED: SODIUM CHL 0.9% IV ONE (18:00)
[2016-07-02] MEDS ORDERED: DESMOPRESSIN IV ONE (18:00)
[2016-07-02] MEDS: Boost Glucose Control 8 Ounces PO SCH (19:00)
[2016-07-02] MEDS ORDERED: FUROSEMIDE 20 MG/2 ML VIAL IV PRN (19:30)
[2016-07-02] MEDS: ASCORBIC ACID 500 MG TAB PO SCH (21:55)
[2016-07-02] MEDS: METOPROLOL TARTRATE 25 MG TAB PO SCH (21:55)
[2016-07-02] MEDS: DOCUSATE SOD 100 MG CAP PO SCH (22:00)
[2016-07-03] VITALS (91 sets, daily range): BP systolic 106–166; BP diastolic 50–114
[2016-07-03] MEDS: ACCU-CHEK COMFORT CURVE STRIP VI SCH ×6 (00:16→20:35)
[2016-07-03] MEDS: fentaNYL CITRATE 100 MCG/2 ML VL IV PRN ×2 (00:22→12:23)
[2016-07-03] MEDS: InsuLIN REG 1unit/0.01ml Soln (100units/ml) SC SCH ×6 (00:23→20:40)
[2016-07-03] MEDS: AMIODARONE HCL 900 MG in DEXTROSE 500 ML IV SCH (00:50)
[2016-07-03] MEDS: hydrALAZINE HCL 20 MG/ML VL IV PRN ×2 (01:30→08:25)
[2016-07-03 04:05] LABS: DEFINITIVE VIEW TRANSMISSION; Hematocrit 29.7 % (36.0-46.0); Mean Corpuscular Hemoglobin 30.1 pg (28.0-32.0); Mean Corpuscular Hgb Conc. 33.6 g/dL (32.0-36.0); Mean Corpuscular Volume 89.7 fL (80.0-100.0); Platelet Count (auto) 218 10^3/uL (140-450); Red Cell Distribution Width 18.2 % (11.6-16.0); SUSPECT VIEW TRANSMISSION
[2016-07-03 04:13] LABS: Metamyelocytes % 0; Myelocytes % 0; Promyelocytes % 0; Reactive Lymphocytes 0
[2016-07-03 04:21] LABS: INR 0.96 (0.9-1.15); Partial Thromboplastin Time 25.1 sec (22.64-33.71); Prothrombin Time 10.4 sec (9.37-12.3)
[2016-07-03 04:57] LABS: Hypersegmented Neutrophils Present; Platelet Estimate Adequate; RBC Morphology Normal
[2016-07-03] MEDS: HYDROcodone-ACET 5/325MG TAB PO PRN ×3 (05:18→23:21)
[2016-07-03] MEDS: SODIUM CHLORIDE 0.9% 500 ML IV SCH (05:59)
[2016-07-03] MEDS: FUROSEMIDE 40 MG TAB PO SCH ×2 (06:00→17:59)
[2016-07-03] MEDS: IPRATROPIUM BROM 0.5 MG/2.5ML INH SOL NEB SCH ×5 (06:28→22:00)
[2016-07-03] MEDS: ACETYLCYSTEINE 10 %(100MG/ML) SOL 4ML NEB SCH ×3 (06:28→18:07)
[2016-07-03 07:02] LABS: Albumin 3.2 g/dL (3.4-5.0); BUN/Creatinine Ratio 42.3; Calcium 8.6 mg/dL (8.5-10.1); Magnesium 2.7 mg/dL (1.6-2.6); Potassium 3.7 mmol/L (3.5-5.1)
[2016-07-03 07:04] LABS: Bilirubin, Total 0.9 mg/dL (0.2-1.0); Total Protein 6.1 g/dL (6.4-8.2)
[2016-07-03] MEDS: Boost Glucose Control 8 Ounces PO SCH ×3 (08:00→18:00)
[2016-07-03] MEDS: SOD CHL 0.45% 1,000 ML IV SCH (08:22)
[2016-07-03] MEDS: glipiZIDE 5 MG TAB PO SCH (08:24)
[2016-07-03] MEDS: POTASSIUM CHL 20MEQ/100ML 100 ML IV PRN ×4 (08:25→23:24)
[2016-07-03] MEDS: METOCLOPRAMIDE HCL 5MG/ml INJ 2ml VIAL IV PRN (09:05)
[2016-07-03] MEDS: POTASSIUM CHL 20 Meq TABLET PO SCH (10:00)
[2016-07-03] MEDS: CHLORHEXIDINE 0.12% ORAL rinse 473ML MT SCH ×2 (10:00→22:00)
[2016-07-03] MEDS: DOCUSATE SOD 100 MG CAP PO SCH ×3 (10:00→21:44)
[2016-07-03] MEDS: PANTOPRAZOLE SODIUM 40 MG/10 ML VIAL IV SCH ×2 (10:17→22:00)
[2016-07-03] MEDS: NITROGLYCERIN 0.4MG/HR TOPICAL PATCH TD SCH (10:18)
[2016-07-03] MEDS: NICOTINE 21MG/24 HR TOPICAL PATCH TD SCH (10:19)
[2016-07-03] MEDS: METOPROLOL TARTRATE 25 MG TAB PO SCH ×2 (10:19→21:45)
[2016-07-03] MEDS: ASCORBIC ACID 500 MG TAB PO SCH ×2 (10:19→23:20)
[2016-07-03] MEDS ORDERED: DOPamine 1600MCG/ML 250 ML IV SCH ×2 (11:30)
[2016-07-03] MEDS ORDERED: VANCOMYCIN 500 MG in D5W 5% 100 ML IV ONE (12:00)
[2016-07-03] MEDS ORDERED: ALPRAZolam 0.5 MG TAB PO PRN (12:00)
[2016-07-03] MEDS ORDERED: cefTRIAXone 1GM/50ML D5W 50 ML IV ONE (14:15)
[2016-07-03] MEDS: METOPROLOL TARTRATE 1MG/1ML-5ML VIAL IV SCH (17:52)
[2016-07-03] MEDS: hydrALAZINE HCL 10 MG TAB PO SCH ×2 (17:53→23:22)
[2016-07-03 21:12] LABS: Albumin 2.9 g/dL (3.4-5.0); BUN/Creatinine Ratio 60.3; Bilirubin, Total 0.7 mg/dL (0.2-1.0); Potassium 3.8 mmol/L (3.5-5.1)
[2016-07-04] VITALS (48 sets, daily range): BP systolic 100–149; BP diastolic 46–95
[2016-07-04] MEDS: InsuLIN REG 1unit/0.01ml Soln (100units/ml) SC SCH ×5 (01:30→21:46)
[2016-07-04] MEDS: ACCU-CHEK COMFORT CURVE STRIP VI SCH ×5 (01:30→21:46)
[2016-07-04] MEDS: HYDROcodone-ACET 5/325MG TAB PO PRN ×2 (05:20→14:50)
[2016-07-04] MEDS: METOPROLOL TARTRATE 1MG/1ML-5ML VIAL IV SCH ×2 (06:00)
[2016-07-04] MEDS: FUROSEMIDE 40 MG TAB PO SCH (06:12)
[2016-07-04] MEDS: glipiZIDE 5 MG TAB PO SCH (06:12)
[2016-07-04 06:17] LABS: Hematocrit 29.4 % (36.0-46.0); Hemoglobin 9.9 g/dL (12.2-16.2); Mean Corpuscular Hemoglobin 30.3 pg (28.0-32.0); Mean Corpuscular Hgb Conc. 33.5 g/dL (32.0-36.0); Mean Corpuscular Volume 90.4 fL (80.0-100.0); Mean Platelet Volume 9.5 fL (7.4-10.4); Platelet Count (auto) 209 10^3/uL (140-450); Red Cell Distribution Width 17.8 % (11.6-16.0); SUSPECT VIEW TRANSMISSION; White Blood Cell 19.7 10^3/uL (4.4-10.8)
[2016-07-04 06:21] LABS: Metamyelocytes % 0; Myelocytes % 0; Promyelocytes % 0; Reactive Lymphocytes 0
[2016-07-04] MEDS: hydrALAZINE HCL 10 MG TAB PO SCH ×3 (06:30→18:00)
[2016-07-04] MEDS: IPRATROPIUM BROM 0.5 MG/2.5ML INH SOL NEB SCH ×6 (06:42→23:04)
[2016-07-04] MEDS: ACETYLCYSTEINE 10 %(100MG/ML) SOL 4ML NEB SCH ×3 (06:42→23:04)
[2016-07-04 06:47] LABS: Potassium 3.9 mmol/L (3.5-5.1)
[2016-07-04 06:52] LABS: Albumin 2.9 g/dL (3.4-5.0); BUN/Creatinine Ratio 52.5; Calcium 8.6 mg/dL (8.5-10.1); Magnesium 2.3 mg/dL (1.6-2.6)
[2016-07-04 06:55] LABS: Bilirubin, Total 0.9 mg/dL (0.2-1.0); Total Protein 5.8 g/dL (6.4-8.2)
[2016-07-04 07:27] LABS: Platelet Estimate Adequate; RBC Morphology Normal
[2016-07-04] MEDS: Boost Glucose Control 8 Ounces PO SCH ×3 (08:00→18:00)
[2016-07-04] MEDS ORDERED: POTASSIUM CHL 20 Meq TABLET PO PRN (08:15)
[2016-07-04] MEDS: SOD CHL 0.45% 1,000 ML IV SCH (08:15)
[2016-07-04] MEDS ORDERED: DEXTROSE (50%) 50ML SYRG IV PRN (08:30)
[2016-07-04] MEDS ORDERED: VANCOMYCIN PER PHARMACY 0 MG IV SCH (08:30)
[2016-07-04] MEDS: cefTRIAXone 1GM/50ML D5W 50 ML IV SCH (08:53)
[2016-07-04] MEDS: PANTOPRAZOLE SODIUM 40 MG/10 ML VIAL IV SCH ×2 (09:41→21:32)
[2016-07-04] MEDS: METOCLOPRAMIDE HCL 5MG/ml INJ 2ml VIAL IV PRN ×2 (09:41→19:39)
[2016-07-04] MEDS: NICOTINE 21MG/24 HR TOPICAL PATCH TD SCH (09:41)
[2016-07-04] MEDS: ASCORBIC ACID 500 MG TAB PO SCH ×2 (09:42→21:32)
[2016-07-04] MEDS: METOPROLOL TARTRATE 25 MG TAB PO SCH ×2 (09:42→21:33)
[2016-07-04] MEDS: POTASSIUM CHL 20 Meq TABLET PO SCH (09:42)
[2016-07-04] MEDS: NITROGLYCERIN 0.4MG/HR TOPICAL PATCH TD SCH (09:42)
[2016-07-04] MEDS: DOCUSATE SOD 100 MG CAP PO SCH ×2 (09:43→21:39)
[2016-07-04] MEDS: CHLORHEXIDINE 0.12% ORAL rinse 473ML MT SCH ×2 (09:54→21:34)
[2016-07-04] MEDS ORDERED: CIPROFLOXACIN HCL 500 MG TAB PO SCH (10:00)
[2016-07-04] MEDS: fentaNYL CITRATE 100 MCG/2 ML VL IV PRN ×2 (11:00→16:57)
[2016-07-04] MEDS ORDERED: POTASSIUM CHL 20 Meq TABLET PO ONE (12:00)
[2016-07-04 14:14] LABS: Urine Bilirubin Negative (Negative); Urine Color Yellow (Yellow); Urine Glucose Normal (Normal); Urine Hyaline Cast FEW /lpf (0 - 2); Urine Ketone Negative (Negative); Urine Nitrite Negative (Negative); Urine RBC 107 /hpf (0 - 4); Urine Squamous Epithelial Cell FEW /hpf (<5); Urine Urobilinogen Normal (Negative); Urine pH 5.5 (5.0-8.0)
[2016-07-04 14:18] LABS: Urine Blood 2+ /uL (Negative)
[2016-07-04] MEDS: AMIODARONE HCL 900 MG in DEXTROSE 500 ML IV SCH (14:44)
[2016-07-04] MEDS: metroNIDAZOLE 500 MG TAB PO SCH ×2 (14:51→21:32)
[2016-07-04] MEDS ORDERED: VANCOMYCIN 750 MG in D5W 5% 250 ML IV SCH (16:00)
[2016-07-05] VITALS (30 sets, daily range): BP systolic 106–155; BP diastolic 63–94
[2016-07-05] MEDS: hydrALAZINE HCL 10 MG TAB PO SCH ×4 (00:12→18:19)
[2016-07-05] MEDS: HYDROcodone-ACET 5/325MG TAB PO PRN ×3 (00:13→18:20)
[2016-07-05] MEDS: AMIODARONE HCL 900 MG in DEXTROSE 500 ML IV SCH (00:50)
[2016-07-05 04:29] LABS: Basophils # (auto) 0 uL; Basophils % (auto) 0.2 % (0.0-2.0); Eosinophils # (auto) 0.1 uL; Eosinophils % (auto) 0.6 % (0.0-7.0); Hemoglobin 9.6 g/dL (12.2-16.2); Lymphocytes # (auto) 1.8 uL; Lymphocytes % (auto) 11.9 % (10.0-50.0); Mean Corpuscular Hemoglobin 30.1 pg (28.0-32.0); Mean Corpuscular Volume 91.3 fL (80.0-100.0); Mean Platelet Volume 9.3 fL (7.4-10.4); Monocytes # (auto) 1.3 uL; Monocytes % (auto) 8.8 % (0.0-12.0); Neutrophils # (auto) 11.8 uL; Neutrophils % (auto) 78.5 % (37.0-80.0); Platelet Count (auto) 235 10^3/uL (140-450); Red Cell Distribution Width 17.1 % (11.6-16.0)
[2016-07-05 04:53] LABS: Albumin 2.8 g/dL (3.4-5.0); BUN/Creatinine Ratio 43.9; Bilirubin, Total 0.7 mg/dL (0.2-1.0); Calcium 8.8 mg/dL (8.5-10.1); Magnesium 2.3 mg/dL (1.6-2.6); Potassium 3.9 mmol/L (3.5-5.1); Total Protein 5.9 g/dL (6.4-8.2)
[2016-07-05] MEDS: metroNIDAZOLE 500 MG TAB PO SCH (06:00)
[2016-07-05] MEDS: InsuLIN REG 1unit/0.01ml Soln (100units/ml) SC SCH ×4 (06:54→22:00)
[2016-07-05] MEDS: glipiZIDE 5 MG TAB PO SCH (06:54)
[2016-07-05] MEDS: ACCU-CHEK COMFORT CURVE STRIP VI SCH ×4 (06:54→22:22)
[2016-07-05] MEDS: IPRATROPIUM BROM 0.5 MG/2.5ML INH SOL NEB SCH ×6 (07:14→22:00)
[2016-07-05] MEDS: ACETYLCYSTEINE 10 %(100MG/ML) SOL 4ML NEB SCH ×3 (07:15→18:22)
[2016-07-05] MEDS: Boost Glucose Control 8 Ounces PO SCH ×3 (08:27→17:29)
[2016-07-05] MEDS: SOD CHL 0.45% 1,000 ML IV SCH (08:28)
[2016-07-05] MEDS: cefTRIAXone 1GM/50ML D5W 50 ML IV SCH (08:40)
[2016-07-05] MEDS: METOCLOPRAMIDE HCL 5MG/ml INJ 2ml VIAL IV PRN (08:53)
[2016-07-05] MEDS: INSULIN DETEMIR(LEVEMIR) 1unit/0.01ml Soln (100units/ml) SC SCH ×2 (10:00→22:00)
[2016-07-05] MEDS: DOCUSATE SOD 100 MG CAP PO SCH ×2 (10:00→22:00)
[2016-07-05] MEDS: PANTOPRAZOLE SODIUM 40 MG/10 ML VIAL IV SCH ×2 (10:36→22:20)
[2016-07-05] MEDS: METOPROLOL TARTRATE 25 MG TAB PO SCH ×2 (10:36→22:21)
[2016-07-05] MEDS: FUROSEMIDE 40 MG TAB PO SCH (10:36)
[2016-07-05] MEDS: CHLORHEXIDINE 0.12% ORAL rinse 473ML MT SCH ×2 (10:37→22:22)
[2016-07-05] MEDS: POTASSIUM CHL 20 Meq TABLET PO SCH (10:37)
[2016-07-05] MEDS: ASCORBIC ACID 500 MG TAB PO SCH ×2 (10:37→22:21)
[2016-07-05] MEDS: NITROGLYCERIN 0.4MG/HR TOPICAL PATCH TD SCH (10:38)
[2016-07-05] MEDS: NICOTINE 21MG/24 HR TOPICAL PATCH TD SCH (10:38)
[2016-07-06] VITALS (37 sets, daily range): BP systolic 118–177; BP diastolic 71–108
[2016-07-06] MEDS: hydrALAZINE HCL 10 MG TAB PO SCH ×3 (00:03→12:40)
[2016-07-06] MEDS: HYDROcodone-ACET 5/325MG TAB PO PRN ×4 (00:04→23:19)
[2016-07-06] MEDS: AMIODARONE HCL 900 MG in DEXTROSE 500 ML IV SCH (00:50)
[2016-07-06 04:09] LABS: Basophils # (auto) 0 uL; Basophils % (auto) 0.1 % (0.0-2.0); Eosinophils # (auto) 0.2 uL; Eosinophils % (auto) 1.3 % (0.0-7.0); Hemoglobin 11.2 g/dL (12.2-16.2); Lymphocytes # (auto) 1.6 uL; Lymphocytes % (auto) 10.7 % (10.0-50.0); Mean Corpuscular Hemoglobin 30.1 pg (28.0-32.0); Mean Corpuscular Hgb Conc. 32.9 g/dL (32.0-36.0); Mean Corpuscular Volume 91.7 fL (80.0-100.0); Mean Platelet Volume 9.1 fL (7.4-10.4); Monocytes # (auto) 1.2 uL; Monocytes % (auto) 8.1 % (0.0-12.0); Neutrophils # (auto) 12.2 uL; Neutrophils % (auto) 79.8 % (37.0-80.0); Platelet Count (auto) 333 10^3/uL (140-450); White Blood Cell 15.3 10^3/uL (4.4-10.8)
[2016-07-06 04:22] LABS: BUN/Creatinine Ratio 39.7; Calcium 9.3 mg/dL (8.5-10.1); Potassium 3.9 mmol/L (3.5-5.1)
[2016-07-06] MEDS: ACCU-CHEK COMFORT CURVE STRIP VI SCH ×4 (06:42→22:10)
[2016-07-06] MEDS: glipiZIDE 5 MG TAB PO SCH (06:42)
[2016-07-06] MEDS: InsuLIN REG 1unit/0.01ml Soln (100units/ml) SC SCH ×4 (06:42→21:39)
[2016-07-06] MEDS: ACETYLCYSTEINE 10 %(100MG/ML) SOL 4ML NEB SCH ×3 (06:54→22:06)
[2016-07-06] MEDS: IPRATROPIUM BROM 0.5 MG/2.5ML INH SOL NEB SCH ×6 (06:55→22:06)
[2016-07-06] MEDS: SOD CHL 0.45% 1,000 ML IV SCH (08:15)
[2016-07-06] MEDS: Boost Glucose Control 8 Ounces PO SCH ×3 (08:29→19:14)
[2016-07-06] MEDS: cefTRIAXone 1GM/50ML D5W 50 ML IV SCH (08:52)
[2016-07-06] MEDS: NICOTINE 21MG/24 HR TOPICAL PATCH TD SCH (10:00)
[2016-07-06] MEDS: METOPROLOL TARTRATE 25 MG TAB PO SCH ×2 (10:00→21:36)
[2016-07-06] MEDS: PANTOPRAZOLE SODIUM 40 MG/10 ML VIAL IV SCH ×2 (10:00→21:35)
[2016-07-06] MEDS: ASCORBIC ACID 500 MG TAB PO SCH ×2 (10:00→21:36)
[2016-07-06] MEDS: FUROSEMIDE 40 MG TAB PO SCH (10:00)
[2016-07-06] MEDS: DOCUSATE SOD 100 MG CAP PO SCH ×2 (10:00→21:36)
[2016-07-06] MEDS: INSULIN DETEMIR(LEVEMIR) 1unit/0.01ml Soln (100units/ml) SC SCH ×2 (10:00→21:38)
[2016-07-06] MEDS: CHLORHEXIDINE 0.12% ORAL rinse 473ML MT SCH ×2 (10:00→21:43)
[2016-07-06] MEDS: POTASSIUM CHL 20 Meq TABLET PO SCH (10:00)
[2016-07-06] MEDS: NITROGLYCERIN 0.4MG/HR TOPICAL PATCH TD SCH (10:00)
[2016-07-06] MEDS: fentaNYL CITRATE 100 MCG/2 ML VL IV PRN (11:33)
[2016-07-07] VITALS (16 sets, daily range): BP systolic 110–155; BP diastolic 55–94
[2016-07-07] MEDS: ACETYLCYSTEINE 10 %(100MG/ML) SOL 4ML NEB SCH (05:39)
[2016-07-07] MEDS: IPRATROPIUM BROM 0.5 MG/2.5ML INH SOL NEB SCH ×5 (05:39→22:10)
[2016-07-07] MEDS: glipiZIDE 5 MG TAB PO SCH (06:29)
[2016-07-07] MEDS: InsuLIN REG 1unit/0.01ml Soln (100units/ml) SC SCH ×4 (06:29→22:00)
[2016-07-07] MEDS: ACCU-CHEK COMFORT CURVE STRIP VI SCH ×4 (06:30→22:00)
[2016-07-07 08:00] LABS: Basophils # (auto) 0 uL; Basophils % (auto) 0.2 % (0.0-2.0); Eosinophils # (auto) 0.2 uL; Eosinophils % (auto) 1.1 % (0.0-7.0); Hematocrit 32.3 % (36.0-46.0); Hemoglobin 10.6 g/dL (12.2-16.2); Lymphocytes % (auto) 11.1 % (10.0-50.0); Mean Corpuscular Hemoglobin 30.2 pg (28.0-32.0); Mean Corpuscular Hgb Conc. 32.9 g/dL (32.0-36.0); Mean Corpuscular Volume 91.8 fL (80.0-100.0); Mean Platelet Volume 8.2 fL (7.4-10.4); Monocytes # (auto) 1.4 uL; Monocytes % (auto) 7.8 % (0.0-12.0); Neutrophils # (auto) 14.2 uL; Neutrophils % (auto) 79.8 % (37.0-80.0); Platelet Count (auto) 379 10^3/uL (140-450); Red Cell Distribution Width 16.7 % (11.6-16.0); White Blood Cell 17.8 10^3/uL (4.4-10.8)
[2016-07-07] MEDS: SOD CHL 0.45% 1,000 ML IV SCH (08:15)
[2016-07-07] MEDS: HYDROcodone-ACET 5/325MG TAB PO PRN ×2 (09:04→15:28)
[2016-07-07] MEDS: ASCORBIC ACID 500 MG TAB PO SCH (09:05)
[2016-07-07] MEDS: POTASSIUM CHL 20 Meq TABLET PO SCH (09:06)
[2016-07-07] MEDS: FUROSEMIDE 40 MG TAB PO SCH (09:06)
[2016-07-07] MEDS: METOPROLOL TARTRATE 25 MG TAB PO SCH ×2 (09:07→21:47)
[2016-07-07] MEDS: NICOTINE 21MG/24 HR TOPICAL PATCH TD SCH (09:08)
[2016-07-07] MEDS: cefTRIAXone 1GM/50ML D5W 50 ML IV SCH (09:08)
[2016-07-07] MEDS: NITROGLYCERIN 0.4MG/HR TOPICAL PATCH TD SCH (09:09)
[2016-07-07] MEDS: PANTOPRAZOLE SODIUM 40 MG/10 ML VIAL IV SCH ×2 (09:09→21:47)
[2016-07-07] MEDS: CHLORHEXIDINE 0.12% ORAL rinse 473ML MT SCH ×2 (09:09→21:47)
[2016-07-07] MEDS: DOCUSATE SOD 100 MG CAP PO SCH (09:10)
[2016-07-07] MEDS: Boost Glucose Control 8 Ounces PO SCH ×3 (12:00→18:00)
[2016-07-07] MEDS: INSULIN DETEMIR(LEVEMIR) 1unit/0.01ml Soln (100units/ml) SC SCH ×2 (12:19→22:00)
[2016-07-07] MEDS: DICYCLOMINE HCL 10 MG CAP PO PRN (13:29)
[2016-07-08] VITALS (28 sets, daily range): BP systolic 103–151; BP diastolic 58–107
[2016-07-08] MEDS: DICYCLOMINE HCL 10 MG CAP PO PRN (00:49)
[2016-07-08 04:40] LABS: Basophils # (auto) 0 uL; Basophils % (auto) 0.2 % (0.0-2.0); Eosinophils # (auto) 0.2 uL; Eosinophils % (auto) 1.4 % (0.0-7.0); Hematocrit 29.6 % (36.0-46.0); Hemoglobin 9.6 g/dL (12.2-16.2); Lymphocytes # (auto) 1.8 uL; Lymphocytes % (auto) 10.7 % (10.0-50.0); Mean Corpuscular Hemoglobin 30.1 pg (28.0-32.0); Mean Corpuscular Hgb Conc. 32.3 g/dL (32.0-36.0); Mean Corpuscular Volume 93.2 fL (80.0-100.0); Mean Platelet Volume 8.6 fL (7.4-10.4); Monocytes # (auto) 1.4 uL; Monocytes % (auto) 8.5 % (0.0-12.0); Neutrophils # (auto) 13.5 uL; Neutrophils % (auto) 79.2 % (37.0-80.0); Platelet Count (auto) 401 10^3/uL (140-450); Red Cell Distribution Width 16.7 % (11.6-16.0); SUSPECT VIEW TRANSMISSION
[2016-07-08] MEDS: IPRATROPIUM BROM 0.5 MG/2.5ML INH SOL NEB SCH ×5 (07:13→22:00)
[2016-07-08] MEDS: cefTRIAXone 1GM/50ML D5W 50 ML IV SCH (09:47)
[2016-07-08] MEDS: NICOTINE 21MG/24 HR TOPICAL PATCH TD SCH (09:47)
[2016-07-08] MEDS: PANTOPRAZOLE SODIUM 40 MG/10 ML VIAL IV SCH (09:52)
[2016-07-08] MEDS: NITROGLYCERIN 0.4MG/HR TOPICAL PATCH TD SCH (09:52)
[2016-07-08] MEDS: POTASSIUM CHL 20 Meq TABLET PO SCH (09:52)
[2016-07-08] MEDS: METOPROLOL TARTRATE 25 MG TAB PO SCH ×2 (09:53→21:31)
[2016-07-08] MEDS: FUROSEMIDE 40 MG TAB PO SCH (09:53)
[2016-07-08] MEDS: HYDROcodone-ACET 5/325MG TAB PO PRN ×2 (09:54→20:49)
[2016-07-08 11:46] LABS: BUN/Creatinine Ratio 33.9; Calcium 8.8 mg/dL (8.5-10.1); Magnesium 2.4 mg/dL (1.6-2.6); Potassium 4.2 mmol/L (3.5-5.1)
[2016-07-08] MEDS: Boost Glucose Control 8 Ounces PO SCH ×3 (12:00→18:31)
[2016-07-08] MEDS ORDERED: DEXTROSE (50%) 50ML SYRG IV PRN (12:00)
[2016-07-08] MEDS ORDERED: glipiZIDE 5 MG TAB PO ONE (12:15)
[2016-07-08] MEDS: InsuLIN REG 1unit/0.01ml Soln (100units/ml) SC SCH ×3 (12:50→21:32)
[2016-07-08] MEDS: CHLORHEXIDINE 0.12% ORAL rinse 473ML MT SCH ×2 (12:57→21:32)
[2016-07-08] MEDS: metroNIDAZOLE 500 MG TAB PO SCH ×2 (16:37→21:31)
[2016-07-08] MEDS: ACCU-CHEK COMFORT CURVE STRIP VI SCH ×2 (18:31→21:32)
[2016-07-08] MEDS: metFORMIN HYDROCHLORIDE 500 MG TAB PO SCH (18:31)
[2016-07-08] MEDS: PANTOPRAZOLE 40 MG TAB PO SCH (21:31)
[2016-07-09] VITALS (46 sets, daily range): BP systolic 94–159; BP diastolic 53–88
[2016-07-09] MEDS: DICYCLOMINE HCL 10 MG CAP PO PRN (00:38)
[2016-07-09] MEDS: IPRATROPIUM BROM 0.5 MG/2.5ML INH SOL NEB SCH ×6 (02:00→22:00)
[2016-07-09 04:11] LABS: Calcium 8.6 mg/dL (8.5-10.1); Potassium 4.4 mmol/L (3.5-5.1)
[2016-07-09 04:13] LABS: Basophils # (auto) 0.1 uL; Basophils % (auto) 0.3 % (0.0-2.0); DEFINITIVE VIEW TRANSMISSION; Eosinophils # (auto) 0.3 uL; Eosinophils % (auto) 1.7 % (0.0-7.0); Hematocrit 29.9 % (36.0-46.0); Hemoglobin 9.7 g/dL (12.2-16.2); Lymphocytes % (auto) 10.6 % (10.0-50.0); Mean Corpuscular Hemoglobin 29.8 pg (28.0-32.0); Mean Corpuscular Hgb Conc. 32.3 g/dL (32.0-36.0); Mean Corpuscular Volume 92.4 fL (80.0-100.0); Mean Platelet Volume 8.3 fL (7.4-10.4); Monocytes # (auto) 1.8 uL; Monocytes % (auto) 9.8 % (0.0-12.0); Neutrophils # (auto) 14.5 uL; Neutrophils % (auto) 77.6 % (37.0-80.0); Platelet Count (auto) 469 10^3/uL (140-450); Red Cell Distribution Width 16.2 % (11.6-16.0); White Blood Cell 18.7 10^3/uL (4.4-10.8)
[2016-07-09 04:14] LABS: BUN/Creatinine Ratio 33.9
[2016-07-09] MEDS: metroNIDAZOLE 500 MG TAB PO SCH ×2 (06:21→13:54)
[2016-07-09] MEDS: ACCU-CHEK COMFORT CURVE STRIP VI SCH ×4 (06:21→21:43)
[2016-07-09] MEDS: metFORMIN HYDROCHLORIDE 500 MG TAB PO SCH (06:21)
[2016-07-09] MEDS: InsuLIN REG 1unit/0.01ml Soln (100units/ml) SC SCH ×4 (06:23→21:43)
[2016-07-09] MEDS ORDERED: glipiZIDE 5 MG TAB PO SCH (07:00)
[2016-07-09] MEDS ORDERED: FUROSEMIDE 40 MG/4 ML VIAL IV ONE (07:45)
[2016-07-09] MEDS: Boost Glucose Control 8 Ounces PO SCH ×3 (08:12→17:29)
[2016-07-09] MEDS: NICOTINE 21MG/24 HR TOPICAL PATCH TD SCH (09:32)
[2016-07-09] MEDS: PANTOPRAZOLE 40 MG TAB PO SCH ×2 (09:32→21:42)
[2016-07-09] MEDS: NITROGLYCERIN 0.4MG/HR TOPICAL PATCH TD SCH (09:32)
[2016-07-09] MEDS: POTASSIUM CHL 20 Meq TABLET PO SCH (09:33)
[2016-07-09] MEDS: HYDROcodone-ACET 5/325MG TAB PO PRN ×3 (09:33→23:28)
[2016-07-09] MEDS: METOPROLOL TARTRATE 25 MG TAB PO SCH ×3 (09:34→21:42)
[2016-07-09] MEDS: CHLORHEXIDINE 0.12% ORAL rinse 473ML MT SCH ×2 (09:35→21:43)
[2016-07-09] MEDS ORDERED: FUROSEMIDE 40 MG TAB PO SCH (10:00)
[2016-07-09] MEDS ORDERED: LEVOFLOXACIN 500 MG TAB PO ONE (13:00)
[2016-07-09] MEDS: metFORMIN HYDROCHLORIDE 850 MG TAB PO SCH (18:22)
[2016-07-09] MEDS: fentaNYL CITRATE 100 MCG/2 ML VL IV PRN (20:25)
[2016-07-10] VITALS (49 sets, daily range): BP systolic 99–155; BP diastolic 57–91
[2016-07-10 04:01] LABS: Basophils # (auto) 0.1 uL; Basophils % (auto) 0.3 % (0.0-2.0); Eosinophils # (auto) 0.2 uL; Eosinophils % (auto) 1.3 % (0.0-7.0); Hematocrit 31.5 % (36.0-46.0); Hemoglobin 10.3 g/dL (12.2-16.2); Lymphocytes # (auto) 2.4 uL; Mean Corpuscular Hemoglobin 30.3 pg (28.0-32.0); Mean Corpuscular Hgb Conc. 32.7 g/dL (32.0-36.0); Mean Corpuscular Volume 92.7 fL (80.0-100.0); Monocytes # (auto) 1.5 uL; Monocytes % (auto) 8.2 % (0.0-12.0); Neutrophils % (auto) 77.2 % (37.0-80.0); Platelet Count (auto) 532 10^3/uL (140-450); Red Cell Distribution Width 16.6 % (11.6-16.0); White Blood Cell 18.2 10^3/uL (4.4-10.8)
[2016-07-10 04:19] LABS: Potassium 4.2 mmol/L (3.5-5.1)
[2016-07-10 04:25] LABS: BUN/Creatinine Ratio 41.4; Calcium 8.9 mg/dL (8.5-10.1)
[2016-07-10] MEDS: FUROSEMIDE 40 MG TAB PO SCH ×2 (06:11→18:26)
[2016-07-10] MEDS: HYDROcodone-ACET 5/325MG TAB PO PRN ×3 (06:21→19:32)
[2016-07-10] MEDS: metFORMIN HYDROCHLORIDE 850 MG TAB PO SCH ×2 (06:21→18:26)
[2016-07-10] MEDS: ACCU-CHEK COMFORT CURVE STRIP VI SCH ×4 (06:22→22:05)
[2016-07-10] MEDS: InsuLIN REG 1unit/0.01ml Soln (100units/ml) SC SCH ×4 (06:22→22:05)
[2016-07-10] MEDS: glipiZIDE 5 MG TAB PO SCH (06:33)
[2016-07-10] MEDS: IPRATROPIUM BROM 0.5 MG/2.5ML INH SOL NEB SCH ×5 (06:42→22:31)
[2016-07-10] MEDS: fentaNYL CITRATE 100 MCG/2 ML VL IV PRN ×2 (08:43→22:04)
[2016-07-10] MEDS: Boost Glucose Control 8 Ounces PO SCH ×3 (08:48→18:26)
[2016-07-10] MEDS ORDERED: LEVOFLOXACIN 500 MG TAB PO SCH (10:00)
[2016-07-10] MEDS: CHLORHEXIDINE 0.12% ORAL rinse 473ML MT SCH ×2 (10:28→22:04)
[2016-07-10] MEDS: PANTOPRAZOLE 40 MG TAB PO SCH ×2 (10:29→22:04)
[2016-07-10] MEDS: METOPROLOL TARTRATE 25 MG TAB PO SCH ×2 (10:29→22:04)
[2016-07-10] MEDS: ASPirin 81 mg TAB PO SCH (10:29)
[2016-07-10] MEDS: POTASSIUM CHL 20 Meq TABLET PO SCH (10:29)
[2016-07-10] MEDS: NICOTINE 21MG/24 HR TOPICAL PATCH TD SCH (10:30)
[2016-07-10] MEDS: NITROGLYCERIN 0.4MG/HR TOPICAL PATCH TD SCH (10:31)
[2016-07-10] MEDS ORDERED: NITROFURANTOIN (MONO) 100 mg CAP PO ONE (14:00)
[2016-07-10] MEDS ORDERED: ALPRAZolam 0.5 MG TAB PO PRN (14:00)
[2016-07-10] MEDS: NITROFURANTOIN (MONO) 100 mg CAP PO SCH (22:04)
[2016-07-11] VITALS (54 sets, daily range): BP systolic 90–153; BP diastolic 43–86
[2016-07-11] MEDS: IPRATROPIUM BROM 0.5 MG/2.5ML INH SOL NEB SCH ×5 (02:39→22:30)
[2016-07-11 03:57] LABS: Basophils # (auto) 0.1 uL; Basophils % (auto) 0.4 % (0.0-2.0); Eosinophils # (auto) 0.2 uL; Eosinophils % (auto) 0.9 % (0.0-7.0); Hematocrit 32.8 % (36.0-46.0); Hemoglobin 10.5 g/dL (12.2-16.2); Lymphocytes # (auto) 2.3 uL; Lymphocytes % (auto) 12.9 % (10.0-50.0); Mean Corpuscular Hemoglobin 29.8 pg (28.0-32.0); Mean Corpuscular Hgb Conc. 32.1 g/dL (32.0-36.0); Mean Corpuscular Volume 92.9 fL (80.0-100.0); Mean Platelet Volume 8.1 fL (7.4-10.4); Monocytes # (auto) 1.4 uL; Neutrophils # (auto) 13.9 uL; Neutrophils % (auto) 77.8 % (37.0-80.0); Platelet Count (auto) 578 10^3/uL (140-450); Red Cell Distribution Width 17.2 % (11.6-16.0); White Blood Cell 17.9 10^3/uL (4.4-10.8)
[2016-07-11 04:57] LABS: BUN/Creatinine Ratio 45.7; Calcium 9.5 mg/dL (8.5-10.1); Potassium 4.1 mmol/L (3.5-5.1)
[2016-07-11] MEDS: metFORMIN HYDROCHLORIDE 850 MG TAB PO SCH ×2 (06:08→18:28)
[2016-07-11] MEDS: FUROSEMIDE 40 MG TAB PO SCH ×2 (06:09→18:29)
[2016-07-11 06:43] LABS: Urine Bilirubin Negative (Negative); Urine Blood Negative /uL (Negative); Urine Color Yellow (Yellow); Urine Glucose Normal (Normal); Urine Hyaline Cast FEW /lpf (0 - 2); Urine Ketone Negative (Negative); Urine Mucus FEW (None Seen); Urine Nitrite Negative (Negative); Urine RBC 1 /hpf (0 - 4); Urine Squamous Epithelial Cell FEW /hpf (<5); Urine Urobilinogen Normal (Negative); Urine pH 5.5 (5.0-8.0)
[2016-07-11] MEDS: ACCU-CHEK COMFORT CURVE STRIP VI SCH ×4 (07:10→22:00)
[2016-07-11] MEDS: glipiZIDE 5 MG TAB PO SCH (07:10)
[2016-07-11] MEDS: InsuLIN REG 1unit/0.01ml Soln (100units/ml) SC SCH ×4 (07:10→22:00)
[2016-07-11] MEDS: HYDROcodone-ACET 5/325MG TAB PO PRN (08:24)
[2016-07-11] MEDS: Boost Glucose Control 8 Ounces PO SCH ×3 (08:25→18:28)
[2016-07-11] MEDS: NITROGLYCERIN 0.4MG/HR TOPICAL PATCH TD SCH (10:02)
[2016-07-11] MEDS: ASPirin 81 mg TAB PO SCH (10:03)
[2016-07-11] MEDS: PANTOPRAZOLE 40 MG TAB PO SCH ×2 (10:03→21:39)
[2016-07-11] MEDS: CHLORHEXIDINE 0.12% ORAL rinse 473ML MT SCH ×2 (10:03→22:00)
[2016-07-11] MEDS: POTASSIUM CHL 20 Meq TABLET PO SCH (10:03)
[2016-07-11] MEDS: METOPROLOL TARTRATE 25 MG TAB PO SCH ×2 (10:03→21:38)
[2016-07-11] MEDS: NICOTINE 21MG/24 HR TOPICAL PATCH TD SCH (10:13)
[2016-07-11] MEDS: NITROFURANTOIN (MONO) 100 mg CAP PO SCH ×2 (10:13→21:39)
[2016-07-11] MEDS: fentaNYL CITRATE 100 MCG/2 ML VL IV PRN ×2 (13:58→20:06)
[2016-07-12] VITALS (57 sets, daily range): BP systolic 96–156; BP diastolic 51–96
[2016-07-12] MEDS: IPRATROPIUM BROM 0.5 MG/2.5ML INH SOL NEB SCH ×5 (02:38→22:00)
[2016-07-12] MEDS: FUROSEMIDE 40 MG TAB PO SCH ×2 (06:00→18:15)
[2016-07-12] MEDS: metFORMIN HYDROCHLORIDE 850 MG TAB PO SCH ×2 (06:00→18:15)
[2016-07-12] MEDS: ACCU-CHEK COMFORT CURVE STRIP VI SCH ×4 (06:39→22:18)
[2016-07-12] MEDS: InsuLIN REG 1unit/0.01ml Soln (100units/ml) SC SCH ×4 (06:39→22:51)
[2016-07-12] MEDS: glipiZIDE 5 MG TAB PO SCH (07:12)
[2016-07-12] MEDS: Boost Glucose Control 8 Ounces PO SCH ×3 (08:29→18:14)
[2016-07-12] MEDS: HYDROcodone-ACET 5/325MG TAB PO PRN ×3 (08:29→22:37)
[2016-07-12] MEDS: ASPirin 81 mg TAB PO SCH (11:11)
[2016-07-12] MEDS: METOPROLOL TARTRATE 25 MG TAB PO SCH ×2 (11:12→22:18)
[2016-07-12] MEDS: PANTOPRAZOLE 40 MG TAB PO SCH ×2 (11:12→22:18)
[2016-07-12] MEDS: POTASSIUM CHL 20 Meq TABLET PO SCH (11:12)
[2016-07-12] MEDS: NICOTINE 21MG/24 HR TOPICAL PATCH TD SCH (11:13)
[2016-07-12] MEDS: NITROFURANTOIN (MONO) 100 mg CAP PO SCH ×2 (11:13→22:18)
[2016-07-12] MEDS: NITROGLYCERIN 0.4MG/HR TOPICAL PATCH TD SCH (11:13)
[2016-07-12] MEDS ORDERED: InsuLIN REG 1unit/0.01ml Soln (100units/ml) ONE (17:51)
[2016-07-12] MEDS: fentaNYL CITRATE 100 MCG/2 ML VL IV PRN (20:27)
[2016-07-13] VITALS (23 sets, daily range): BP systolic 92–145; BP diastolic 54–87
[2016-07-13] MEDS: DICYCLOMINE HCL 10 MG CAP PO PRN ×2 (00:49→20:09)
[2016-07-13] MEDS: IPRATROPIUM BROM 0.5 MG/2.5ML INH SOL NEB SCH ×8 (02:00→23:52)
[2016-07-13 03:59] LABS: Basophils # (auto) 0.1 uL; Basophils % (auto) 0.3 % (0.0-2.0); Eosinophils # (auto) 0.3 uL; Eosinophils % (auto) 1.2 % (0.0-7.0); Hemoglobin 10.4 g/dL (12.2-16.2); Lymphocytes # (auto) 2.8 uL; Lymphocytes % (auto) 12.8 % (10.0-50.0); Mean Corpuscular Hemoglobin 30.2 pg (28.0-32.0); Mean Corpuscular Hgb Conc. 32.4 g/dL (32.0-36.0); Mean Corpuscular Volume 93.2 fL (80.0-100.0); Mean Platelet Volume 7.7 fL (7.4-10.4); Monocytes # (auto) 1.1 uL; Monocytes % (auto) 4.8 % (0.0-12.0); Neutrophils # (auto) 17.7 uL; Neutrophils % (auto) 80.9 % (37.0-80.0); Platelet Count (auto) 643 10^3/uL (140-450); Red Cell Distribution Width 17.1 % (11.6-16.0); White Blood Cell 21.9 10^3/uL (4.4-10.8)
[2016-07-13 04:15] LABS: BUN/Creatinine Ratio 52.9; Calcium 9.6 mg/dL (8.5-10.1)
[2016-07-13] MEDS: InsuLIN REG 1unit/0.01ml Soln (100units/ml) SC SCH ×4 (06:45→21:44)
[2016-07-13] MEDS: metFORMIN HYDROCHLORIDE 850 MG TAB PO SCH ×2 (06:46→17:24)
[2016-07-13] MEDS: glipiZIDE 5 MG TAB PO SCH (06:46)
[2016-07-13] MEDS: FUROSEMIDE 40 MG TAB PO SCH ×2 (06:47→17:24)
[2016-07-13] MEDS: ACCU-CHEK COMFORT CURVE STRIP VI SCH ×4 (06:47→21:44)
[2016-07-13] MEDS: Boost Glucose Control 8 Ounces PO SCH ×3 (08:00→17:18)
[2016-07-13] MEDS: PANTOPRAZOLE 40 MG TAB PO SCH ×2 (09:40→21:44)
[2016-07-13] MEDS: ASPirin 81 mg TAB PO SCH (09:40)
[2016-07-13] MEDS: METOPROLOL TARTRATE 25 MG TAB PO SCH ×2 (09:40→21:43)
[2016-07-13] MEDS: NITROFURANTOIN (MONO) 100 mg CAP PO SCH (09:41)
[2016-07-13] MEDS: NITROGLYCERIN 0.4MG/HR TOPICAL PATCH TD SCH (09:44)
[2016-07-13] MEDS: NICOTINE 21MG/24 HR TOPICAL PATCH TD SCH (09:44)
[2016-07-13] MEDS: POTASSIUM CHL 20 Meq TABLET PO SCH (09:44)
[2016-07-13] MEDS: HYDROcodone-ACET 5/325MG TAB PO PRN ×2 (10:50→20:49)
[2016-07-13] MEDS: CHOLESTYRAMINE 4 GM POWDER PO SCH ×2 (11:48→23:24)
[2016-07-13] MEDS: fentaNYL CITRATE 100 MCG/2 ML VL IV PRN (14:57)
[2016-07-14] VITALS (7 sets, daily range): BP systolic 88–130; BP diastolic 58–82
[2016-07-14] MEDS: HYDROcodone-ACET 5/325MG TAB PO PRN ×4 (03:45→23:51)
[2016-07-14] MEDS: IPRATROPIUM BROM 0.5 MG/2.5ML INH SOL NEB SCH ×5 (06:00→22:13)
[2016-07-14] MEDS: metFORMIN HYDROCHLORIDE 850 MG TAB PO SCH ×2 (06:18→17:34)
[2016-07-14] MEDS: FUROSEMIDE 40 MG TAB PO SCH (06:19)
[2016-07-14 06:30] LABS: Basophils # (auto) 0.1 uL; Basophils % (auto) 0.3 % (0.0-2.0); Eosinophils # (auto) 0.2 uL; Eosinophils % (auto) 1.1 % (0.0-7.0); Hematocrit 30.6 % (36.0-46.0); Hemoglobin 9.9 g/dL (12.2-16.2); Lymphocytes # (auto) 2.3 uL; Lymphocytes % (auto) 11.1 % (10.0-50.0); Mean Corpuscular Hgb Conc. 32.2 g/dL (32.0-36.0); Mean Platelet Volume 7.9 fL (7.4-10.4); Monocytes # (auto) 0.9 uL; Monocytes % (auto) 4.1 % (0.0-12.0); Neutrophils # (auto) 17.6 uL; Neutrophils % (auto) 83.4 % (37.0-80.0); Platelet Count (auto) 563 10^3/uL (140-450); Red Cell Distribution Width 17.8 % (11.6-16.0); White Blood Cell 21.1 10^3/uL (4.4-10.8)
[2016-07-14] MEDS: InsuLIN REG 1unit/0.01ml Soln (100units/ml) SC SCH ×4 (06:52→21:54)
[2016-07-14] MEDS: glipiZIDE 5 MG TAB PO SCH (06:52)
[2016-07-14] MEDS: ACCU-CHEK COMFORT CURVE STRIP VI SCH ×4 (06:52→21:53)
[2016-07-14] MEDS: Boost Glucose Control 8 Ounces PO SCH ×3 (08:00→18:00)
[2016-07-14] MEDS: NITROGLYCERIN 0.4MG/HR TOPICAL PATCH TD SCH (09:58)
[2016-07-14] MEDS: METOPROLOL TARTRATE 25 MG TAB PO SCH ×2 (09:58→21:53)
[2016-07-14] MEDS: NICOTINE 21MG/24 HR TOPICAL PATCH TD SCH (10:04)
[2016-07-14] MEDS: PANTOPRAZOLE 40 MG TAB PO SCH ×2 (10:04→21:53)
[2016-07-14] MEDS: ASPirin 81 mg TAB PO SCH (10:04)
[2016-07-14] MEDS: CHOLESTYRAMINE 4 GM POWDER PO SCH ×2 (11:25→23:34)
[2016-07-15] MEDS: IPRATROPIUM BROM 0.5 MG/2.5ML INH SOL NEB SCH ×6 (02:00→22:27)
[2016-07-15 04:37] VITALS: BP 143/75
[2016-07-15] MEDS: metFORMIN HYDROCHLORIDE 850 MG TAB PO SCH ×2 (05:58→17:51)
[2016-07-15 06:27] LABS: Basophils # (auto) 0.1 uL; Basophils % (auto) 0.4 % (0.0-2.0); Eosinophils # (auto) 0.2 uL; Hematocrit 31.9 % (36.0-46.0); Hemoglobin 10.3 g/dL (12.2-16.2); Lymphocytes # (auto) 2.2 uL; Lymphocytes % (auto) 11.4 % (10.0-50.0); Mean Corpuscular Hgb Conc. 32.5 g/dL (32.0-36.0); Mean Corpuscular Volume 92.5 fL (80.0-100.0); Mean Platelet Volume 7.9 fL (7.4-10.4); Monocytes # (auto) 0.8 uL; Neutrophils # (auto) 16.2 uL; Neutrophils % (auto) 83.2 % (37.0-80.0); Platelet Count (auto) 600 10^3/uL (140-450); Red Cell Distribution Width 17.6 % (11.6-16.0); White Blood Cell 19.5 10^3/uL (4.4-10.8)
[2016-07-15] MEDS: ACCU-CHEK COMFORT CURVE STRIP VI SCH ×4 (06:50→21:57)
[2016-07-15] MEDS: glipiZIDE 5 MG TAB PO SCH (06:50)
[2016-07-15] MEDS: InsuLIN REG 1unit/0.01ml Soln (100units/ml) SC SCH ×4 (06:50→21:57)
[2016-07-15 07:04] LABS: Albumin 3.2 g/dL (3.4-5.0); BUN/Creatinine Ratio 43.6; Bilirubin, Total 0.3 mg/dL (0.2-1.0); Calcium 9.6 mg/dL (8.5-10.1); Potassium 4.9 mmol/L (3.5-5.1); Total Protein 7.2 g/dL (6.4-8.2)
[2016-07-15] MEDS: Boost Glucose Control 8 Ounces PO SCH ×3 (08:00→18:00)
[2016-07-15 08:39] VITALS: BP 136/78
[2016-07-15] MEDS: PANTOPRAZOLE 40 MG TAB PO SCH ×2 (10:33→21:54)
[2016-07-15] MEDS: ASPirin 81 mg TAB PO SCH (10:34)
[2016-07-15] MEDS: NICOTINE 21MG/24 HR TOPICAL PATCH TD SCH (10:35)
[2016-07-15] MEDS: METOPROLOL TARTRATE 25 MG TAB PO SCH ×2 (10:35→21:57)
[2016-07-15] MEDS: NITROGLYCERIN 0.4MG/HR TOPICAL PATCH TD SCH (10:35)
[2016-07-15] MEDS: HYDROcodone-ACET 5/325MG TAB PO PRN ×2 (11:03→17:51)
[2016-07-15 12:46] VITALS: BP 103/65
[2016-07-15] MEDS ORDERED: LOPERAMIDE HCL 2 MG CAP PO ONE (14:45)
[2016-07-15] MEDS ORDERED: GOLYTELY 4L KIT PO ONE (15:15)
[2016-07-15] MEDS ORDERED: GOLYTELY 4L KIT ONE (15:36)
[2016-07-15 16:23] VITALS: BP 101/49
[2016-07-15 20:00] VITALS: BP 125/68
[2016-07-15 22:00] VITALS: BP 125/68
[2016-07-16] VITALS (8 sets, daily range): BP systolic 107–145; BP diastolic 63–84
[2016-07-16] MEDS: IPRATROPIUM BROM 0.5 MG/2.5ML INH SOL NEB SCH ×6 (02:18→22:41)
[2016-07-16] MEDS: HYDROcodone-ACET 5/325MG TAB PO PRN ×3 (02:56→22:45)
[2016-07-16] MEDS: metFORMIN HYDROCHLORIDE 850 MG TAB PO SCH ×2 (05:53→17:59)
[2016-07-16] MEDS: ACCU-CHEK COMFORT CURVE STRIP VI SCH ×4 (06:42→22:00)
[2016-07-16] MEDS: glipiZIDE 5 MG TAB PO SCH (06:42)
[2016-07-16] MEDS: InsuLIN REG 1unit/0.01ml Soln (100units/ml) SC SCH ×4 (06:42→22:54)
[2016-07-16 06:57] LABS: Basophils # (auto) 0.1 uL; Basophils % (auto) 0.4 % (0.0-2.0); Eosinophils # (auto) 0.3 uL; Eosinophils % (auto) 1.7 % (0.0-7.0); Hematocrit 31.6 % (36.0-46.0); Hemoglobin 10.3 g/dL (12.2-16.2); Lymphocytes # (auto) 2.3 uL; Lymphocytes % (auto) 13.5 % (10.0-50.0); Mean Corpuscular Hemoglobin 30.3 pg (28.0-32.0); Mean Corpuscular Hgb Conc. 32.6 g/dL (32.0-36.0); Mean Corpuscular Volume 92.8 fL (80.0-100.0); Mean Platelet Volume 7.5 fL (7.4-10.4); Monocytes # (auto) 0.8 uL; Monocytes % (auto) 4.5 % (0.0-12.0); Neutrophils # (auto) 13.4 uL; Neutrophils % (auto) 79.9 % (37.0-80.0); Platelet Count (auto) 580 10^3/uL (140-450); White Blood Cell 16.7 10^3/uL (4.4-10.8)
[2016-07-16 07:48] LABS: INR 0.94 (0.9-1.15); Partial Thromboplastin Time 24.9 sec (22.64-33.71); Prothrombin Time 10.1 sec (9.37-12.3)
[2016-07-16] MEDS: Boost Glucose Control 8 Ounces PO SCH ×3 (08:00→17:59)
[2016-07-16] MEDS ORDERED: SODIUM CHLORIDE LOCK 10 ML ONE (08:10)
[2016-07-16] MEDS ORDERED: diphenhdrAMINE HCL 50 MG/1 ML VL ONE (08:11)
[2016-07-16] MEDS: LOPERAMIDE HCL 2 MG CAP PO SCH (10:00)
[2016-07-16] MEDS: ASPirin 81 mg TAB PO SCH (10:00)
[2016-07-16] MEDS: METOPROLOL TARTRATE 25 MG TAB PO SCH ×2 (10:00→22:44)
[2016-07-16] MEDS: PANTOPRAZOLE 40 MG TAB PO SCH ×2 (10:00→22:44)
[2016-07-16] MEDS: NITROGLYCERIN 0.4MG/HR TOPICAL PATCH TD SCH (10:23)
[2016-07-16] MEDS: NICOTINE 21MG/24 HR TOPICAL PATCH TD SCH (10:23)
[2016-07-16] MEDS: MIDAZOLAM HCL 5 MG/ML-1ML VIAL ONE ×2 (10:46→10:56)
[2016-07-16] MEDS: fentaNYL CITRATE 100 MCG/2 ML VL ONE ×2 (10:46→10:56)
[2016-07-17] MEDS: IPRATROPIUM BROM 0.5 MG/2.5ML INH SOL NEB SCH ×6 (02:25→23:18)
[2016-07-17 05:30] VITALS: BP 129/70
[2016-07-17 06:07] LABS: Basophils # (auto) 0.1 uL; Basophils % (auto) 0.5 % (0.0-2.0); Eosinophils # (auto) 0.2 uL; Eosinophils % (auto) 1.6 % (0.0-7.0); Hematocrit 30.5 % (36.0-46.0); Lymphocytes # (auto) 1.7 uL; Lymphocytes % (auto) 12.3 % (10.0-50.0); Mean Corpuscular Hemoglobin 30.4 pg (28.0-32.0); Mean Corpuscular Hgb Conc. 32.7 g/dL (32.0-36.0); Mean Corpuscular Volume 93.1 fL (80.0-100.0); Monocytes # (auto) 0.9 uL; Monocytes % (auto) 6.6 % (0.0-12.0); Neutrophils # (auto) 10.9 uL; Platelet Count (auto) 547 10^3/uL (140-450); Red Cell Distribution Width 17.4 % (11.6-16.0); White Blood Cell 13.8 10^3/uL (4.4-10.8)
[2016-07-17] MEDS: InsuLIN REG 1unit/0.01ml Soln (100units/ml) SC SCH ×3 (06:40→22:00)
[2016-07-17] MEDS: glipiZIDE 5 MG TAB PO SCH (06:40)
[2016-07-17] MEDS: ACCU-CHEK COMFORT CURVE STRIP VI SCH ×4 (06:40→22:21)
[2016-07-17] MEDS: metFORMIN HYDROCHLORIDE 850 MG TAB PO SCH ×2 (06:40→17:31)
[2016-07-17] MEDS: HYDROcodone-ACET 5/325MG TAB PO PRN ×3 (06:43→22:19)
[2016-07-17] MEDS: Boost Glucose Control 8 Ounces PO SCH ×3 (08:00→18:00)
[2016-07-17 08:46] VITALS: BP 112/70
[2016-07-17] MEDS: ASPirin 81 mg TAB PO SCH (10:34)
[2016-07-17] MEDS: LOPERAMIDE HCL 2 MG CAP PO SCH (10:34)
[2016-07-17] MEDS: PANTOPRAZOLE 40 MG TAB PO SCH ×2 (10:35→22:19)
[2016-07-17] MEDS: METOPROLOL TARTRATE 25 MG TAB PO SCH ×2 (10:40→22:20)
[2016-07-17] MEDS: NICOTINE 21MG/24 HR TOPICAL PATCH TD SCH (10:42)
[2016-07-17] MEDS: NITROGLYCERIN 0.4MG/HR TOPICAL PATCH TD SCH (10:43)
[2016-07-17 17:05] VITALS: BP 124/72
[2016-07-17] MEDS ORDERED: DEXTROSE (50%) 50ML SYRG IV PRN (17:30)
[2016-07-17] MEDS ORDERED: ALPRAZolam 0.5 MG TAB PO PRN (17:30)
[2016-07-17 20:00] VITALS: BP 120/75
[2016-07-17 22:00] VITALS: BP 120/75
[2016-07-18] MEDS: IPRATROPIUM BROM 0.5 MG/2.5ML INH SOL NEB SCH ×5 (02:28→22:54)
[2016-07-18] MEDS: HYDROcodone-ACET 5/325MG TAB PO PRN ×3 (04:19→19:37)
[2016-07-18 05:00] VITALS: BP 137/60
[2016-07-18] MEDS: InsuLIN REG 1unit/0.01ml Soln (100units/ml) SC SCH ×4 (07:00→21:58)
[2016-07-18] MEDS: ACCU-CHEK COMFORT CURVE STRIP VI SCH ×4 (07:08→21:58)
[2016-07-18] MEDS: metFORMIN HYDROCHLORIDE 850 MG TAB PO SCH ×2 (07:09→18:32)
[2016-07-18] MEDS: glipiZIDE 5 MG TAB PO SCH (07:09)
[2016-07-18] MEDS: Boost Glucose Control 8 Ounces PO SCH ×3 (08:00→18:00)
[2016-07-18 09:00] VITALS: BP 115/68
[2016-07-18] MEDS: ASPirin 81 mg TAB PO SCH (09:18)
[2016-07-18] MEDS: LOPERAMIDE HCL 2 MG CAP PO SCH (09:18)
[2016-07-18] MEDS: PANTOPRAZOLE 40 MG TAB PO SCH ×2 (09:18→21:59)
[2016-07-18] MEDS: METOPROLOL TARTRATE 25 MG TAB PO SCH ×2 (09:19→21:59)
[2016-07-18] MEDS: NICOTINE 21MG/24 HR TOPICAL PATCH TD SCH (09:23)
[2016-07-18] MEDS: NITROGLYCERIN 0.4MG/HR TOPICAL PATCH TD SCH (10:00)
[2016-07-18 12:57] VITALS: BP 131/71
[2016-07-18 16:46] VITALS: BP 109/63
[2016-07-18 20:00] VITALS: BP 136/84
[2016-07-18 22:04] VITALS: BP 136/84
[2016-07-19] MEDS: IPRATROPIUM BROM 0.5 MG/2.5ML INH SOL NEB SCH ×6 (02:08→22:29)
[2016-07-19 02:14] VITALS: BP 136/84
[2016-07-19] MEDS: HYDROcodone-ACET 5/325MG TAB PO PRN ×3 (02:26→18:12)
[2016-07-19 05:00] VITALS: BP 130/70
[2016-07-19] MEDS: ACCU-CHEK COMFORT CURVE STRIP VI SCH ×4 (06:35→22:28)
[2016-07-19] MEDS: InsuLIN REG 1unit/0.01ml Soln (100units/ml) SC SCH ×4 (06:35→22:00)
[2016-07-19] MEDS: metFORMIN HYDROCHLORIDE 850 MG TAB PO SCH ×2 (06:38→18:12)
[2016-07-19] MEDS: glipiZIDE 5 MG TAB PO SCH (06:38)
[2016-07-19] MEDS: Boost Glucose Control 8 Ounces PO SCH ×3 (08:00→18:12)
[2016-07-19 08:12] VITALS: BP 121/70
[2016-07-19] MEDS: NICOTINE 21MG/24 HR TOPICAL PATCH TD SCH (09:24)
[2016-07-19] MEDS: PANTOPRAZOLE 40 MG TAB PO SCH ×2 (09:25→22:28)
[2016-07-19] MEDS: LOPERAMIDE HCL 2 MG CAP PO SCH (09:25)
[2016-07-19] MEDS: METOPROLOL TARTRATE 25 MG TAB PO SCH ×2 (09:26→22:28)
[2016-07-19] MEDS: ASPirin 81 mg TAB PO SCH (09:26)
[2016-07-19] MEDS: NITROGLYCERIN 0.4MG/HR TOPICAL PATCH TD SCH (09:26)
[2016-07-19 12:24] VITALS: BP 129/79
[2016-07-19 16:23] VITALS: BP 138/80
[2016-07-19 22:00] VITALS: BP 103/66
[2016-07-20] MEDS: HYDROcodone-ACET 5/325MG TAB PO PRN ×2 (01:32→09:55)
[2016-07-20 05:00] VITALS: BP 121/73
[2016-07-20 05:56] LABS: Basophils # (auto) 0.1 uL; Basophils % (auto) 0.5 % (0.0-2.0); Eosinophils # (auto) 0.2 uL; Eosinophils % (auto) 1.9 % (0.0-7.0); Hematocrit 30.5 % (36.0-46.0); Hemoglobin 10.1 g/dL (12.2-16.2); Lymphocytes # (auto) 2.2 uL; Lymphocytes % (auto) 17.4 % (10.0-50.0); Mean Corpuscular Hemoglobin 30.7 pg (28.0-32.0); Mean Corpuscular Hgb Conc. 33.1 g/dL (32.0-36.0); Mean Corpuscular Volume 92.6 fL (80.0-100.0); Mean Platelet Volume 8.4 fL (7.4-10.4); Monocytes % (auto) 7.8 % (0.0-12.0); Neutrophils # (auto) 9.3 uL; Neutrophils % (auto) 72.4 % (37.0-80.0); Platelet Count (auto) 402 10^3/uL (140-450); Red Cell Distribution Width 17.1 % (11.6-16.0); White Blood Cell 12.9 10^3/uL (4.4-10.8)
[2016-07-20] MEDS: IPRATROPIUM BROM 0.5 MG/2.5ML INH SOL NEB SCH ×3 (06:07→14:41)
[2016-07-20] MEDS: InsuLIN REG 1unit/0.01ml Soln (100units/ml) SC SCH ×3 (06:13→17:00)
[2016-07-20] MEDS: ACCU-CHEK COMFORT CURVE STRIP VI SCH ×3 (06:13→17:00)
[2016-07-20 06:15] LABS: BUN/Creatinine Ratio 36.7; Potassium 4.2 mmol/L (3.5-5.1)
[2016-07-20] MEDS: glipiZIDE 5 MG TAB PO SCH (06:17)
[2016-07-20] MEDS: metFORMIN HYDROCHLORIDE 850 MG TAB PO SCH (06:24)
[2016-07-20 08:00] VITALS: BP 114/64
[2016-07-20 08:24] VITALS: BP 114/64
[2016-07-20] MEDS: PANTOPRAZOLE 40 MG TAB PO SCH (09:59)
[2016-07-20] MEDS: NITROGLYCERIN 0.4MG/HR TOPICAL PATCH TD SCH (10:00)
[2016-07-20] MEDS: ASPirin 81 mg TAB PO SCH (10:00)
[2016-07-20] MEDS: Boost Glucose Control 8 Ounces PO SCH ×2 (10:03→12:07)
[2016-07-20] MEDS: LOPERAMIDE HCL 2 MG CAP PO SCH (10:05)
[2016-07-20] MEDS: METOPROLOL TARTRATE 25 MG TAB PO SCH (10:05)
[2016-07-20] MEDS: NICOTINE 21MG/24 HR TOPICAL PATCH TD SCH (10:09)
[2016-07-20 11:32] VITALS: BP 114/64
[2016-07-20 13:00] VITALS: BP 124/82
[2016-07-20 14:09] LABS: Fecal Fats Neutral Normal (.); Fecal Fats Total Normal (.)
[2016-07-21 05:17] LABS: Endomysial IgA Antibody Negative (Negative)
== END 2016-07-20 17:55 | disposition home health service (06) | DRG 233 ==
LOC: ER 08:48 → TELE 08:49 → TELE-E-ADS 15:23 → TELE-EAST 16:49 → ICU WEST 06-29 18:44 → TELE-CENTR 07-13 17:05
PROVIDERS: ADMIT Internal Medicine; ATTEND Internal Medicine
PROC: 4A023N7 Measurement of Cardiac Sampling and Pressure, Left Heart, Percutaneous Approach (ICD-10-PCS; 2016-06-29)
PROC: B2111ZZ Fluoroscopy of Multiple Coronary Arteries using Low Osmolar Contrast (ICD-10-PCS; 2016-06-29)
PROC: B2151ZZ Fluoroscopy of Left Heart using Low Osmolar Contrast (ICD-10-PCS; 2016-06-29)
PROC: 021109W Bypass Coronary Artery, Two Arteries from Aorta with Autologous Venous Tissue, Open Approach (ICD-10-PCS; 2016-06-30)
PROC: 02100Z9 Bypass Coronary Artery, One Artery from Left Internal Mammary, Open Approach (ICD-10-PCS; 2016-06-30)
PROC: 06BP4ZZ Excision of Right Saphenous Vein, Percutaneous Endoscopic Approach (ICD-10-PCS; 2016-06-30)
PROC: 30233N1 Transfusion of Nonautologous Red Blood Cells into Peripheral Vein, Percutaneous Approach (ICD-10-PCS; 2016-06-30)
PROC: 5A1221Z Performance of Cardiac Output, Continuous (ICD-10-PCS; 2016-06-30)
PROC: 30233N1 Transfusion of Nonautologous Red Blood Cells into Peripheral Vein, Percutaneous Approach (ICD-10-PCS; 2016-07-01)
PROC: 5A09457 Assistance with Respiratory Ventilation, 24-96 Consecutive Hours, Continuous Positive Airway Pressure (ICD-10-PCS; 2016-07-01)
PROC: 0W9930Z Drainage of Right Pleural Cavity with Drainage Device, Percutaneous Approach (ICD-10-PCS; principal; 2016-07-02)
PROC: 30233R1 Transfusion of Nonautologous Platelets into Peripheral Vein, Percutaneous Approach (ICD-10-PCS; 2016-07-02)
PROC: 30233N1 Transfusion of Nonautologous Red Blood Cells into Peripheral Vein, Percutaneous Approach (ICD-10-PCS; 2016-07-02)
PROC: 0DB98ZX Excision of Duodenum, Via Natural or Artificial Opening Endoscopic, Diagnostic (ICD-10-PCS; 2016-07-16)
PROC: 0DBE8ZX Excision of Large Intestine, Via Natural or Artificial Opening Endoscopic, Diagnostic (ICD-10-PCS; 2016-07-16)
DX: I25.110 Atherosclerotic heart disease of native coronary artery with unstable angina pectoris (principal); G93.40 Encephalopathy, unspecified; I50.43 Acute on chronic combined systolic (congestive) and diastolic (congestive) heart failure; E46 Unspecified protein-calorie malnutrition; J90 Pleural effusion, not elsewhere classified; I11.0 Hypertensive heart disease with heart failure; J44.9 Chronic obstructive pulmonary disease, unspecified; F17.210 Nicotine dependence, cigarettes, uncomplicated; D64.9 Anemia, unspecified; E11.9 Type 2 diabetes mellitus without complications; D69.6 Thrombocytopenia, unspecified; L60.0 Ingrowing nail; F32.9 Major depressive disorder, single episode, unspecified; K57.30 Diverticulosis of large intestine without perforation or abscess without bleeding; D63.8 Anemia in other chronic diseases classified elsewhere; M79.1 Myalgia; Z79.82 Long term (current) use of aspirin; Z79.84 Long term (current) use of oral hypoglycemic drugs; Z79.899 Other long term (current) drug therapy; Z82.49 Family history of ischemic heart disease and other diseases of the circulatory system; Z95.1 Presence of aortocoronary bypass graft
CPT/HCPCS: 36415; 36600; 43239; 44389; 70450; 71010; 71020; 71250; 72070; 74176; 76604; 76705; 76942; 78452; 80048; 80053; 80061; 80202; 80320; 81001; 82150; 82270; 82378; 82550; 82705; 82784; 82805; 82962; 83036; 83516; 83615; 83690; 83735; 83880; 84100; 84132; 84443; 84484; 85007; 85025; 85027; 85048; 85379; 85384; 85576; 85610; 85652; 85730; 86141; 86255; 86850; 86900; 86901; 86920; 87045; 87081; 87086; 87177; 87493; 87899; 93005; 93017; 93306; 93458; 93886; 94002; 94003; 94640; 94660; 96361; 96374; 96375; 97001; 97110; 97116; 97530; 99152; C1751; C1768; C9113; G0434; J0153; J0330; J0690; J0696; J1100; J1642; J1644; J1815; J2250; J2440; J2704; J2720; J3480; J3490; J7060; Q9967

== ENCOUNTER 2016-11-14 09:26 | Emergency (ER) | payer OTHER, MEDICAID ==
[~2016-11-14 09:26] MED LIST: ASPI81CH43 PO; ATOR20TA50 PO; CAR3125T PO; IBUP600T27 PO; LOSA25TA8 PO; METF-370 PO
[2016-11-14 10:12] LABS: Basophils # (auto) 0 uL; Basophils % (auto) 0.5 % (0.0-2.0); Eosinophils # (auto) 0.1 uL; Eosinophils % (auto) 0.6 % (0.0-7.0); Hematocrit 39.1 % (36.0-46.0); Hemoglobin 12.9 g/dL (12.2-16.2); Lymphocytes # (auto) 1.6 uL; Lymphocytes % (auto) 17.8 % (10.0-50.0); Mean Corpuscular Hemoglobin 32.4 pg (28.0-32.0); Mean Corpuscular Hgb Conc. 33.1 g/dL (32.0-36.0); Mean Corpuscular Volume 97.8 fL (80.0-100.0); Mean Platelet Volume 8.2 fL (7.4-10.4); Monocytes # (auto) 0.4 uL; Monocytes % (auto) 4.9 % (0.0-12.0); Neutrophils # (auto) 6.9 uL; Neutrophils % (auto) 76.2 % (37.0-80.0); Nucleated Red Blood Cells % 0.1 %; Platelet Count (auto) 252 10^3/uL (140-450); Red Cell Distribution Width 14.6 % (11.6-16.0); White Blood Cell 9.1 10^3/uL (4.4-10.8)
[2016-11-14 10:42] LABS: Albumin 3.6 g/dL (3.4-5.0); Bilirubin, Total 0.3 mg/dL (0.2-1.0); Calcium 9.5 mg/dL (8.5-10.1); Magnesium 2.3 mg/dL (1.6-2.6); Total Protein 7.7 g/dL (6.4-8.2)
[2016-11-14 11:34] VITALS: BP 169/111
[2016-11-14 14:04] LABS: B-Type Natriuretic Peptide 1201.35 pg/mL (0-100)
[2016-11-14 14:07] LABS: Temperature: 23.3 C (20.0-25.0)
== END 2016-11-14 16:38 | disposition home or self-care (01) ==
LOC: ER 09:26
DX: R07.9 Chest pain, unspecified (principal); M79.1 Myalgia; F17.210 Nicotine dependence, cigarettes, uncomplicated; I10 Essential (primary) hypertension; E11.9 Type 2 diabetes mellitus without complications; Z95.1 Presence of aortocoronary bypass graft; Z88.0 Allergy status to penicillin; Z79.82 Long term (current) use of aspirin
CPT/HCPCS: 36415; 71010; 80053; 83735; 83880; 84484; 85025; 93005